=== PATIENT | female | born 1945 | race Caucasian/White ===

== ENCOUNTER 2023-10-15 10:19 | Outpatient (OUT) | payer MEDICARE, SELFPAY ==
--- NOTE | 2023-10-15 | XR_ITS ---
The [address] [address] Patient Name: ADILSON MCNAIR MRN: [id number] date: 1945 Sex: F Assigned Patient Location: [facility] Current Patient Location: [facility] Accession/Order Number: [id number] Exam Date: 10/15/2023 10:30 Report Date: 10/15/2023 12:23 At the request of: CHRIS RIZVI Procedure: XR foot LT min 3V PROCEDURE: XR foot LT min 3V DATE: 10/15/2023 9:30 AM [employer]AD[employer]IC ADVISOR COMPARISONS: None CLINICAL INDICATION: LEFT FOOT PAIN FINDINGS: There is no evidence of fractures or other acute osseous abnormalities. There is mild first metatarsal phalangeal degenerative change. There is moderate first interphalangeal degenerative change. There is evidence of moderate apex medial angulation at the first interphalangeal joint. There is evidence of hammertoe deformity second through the fifth ray. XR/XR foot LT min 3V IMPRESSION: Left foot radiographs show no evidence of acute abnormalities. Findings as discussed above. Electronically authenticated by: THOR CHIRINOS Date: 10/15/2023 12:23
== END 2023-10-15 10:20 | disposition home or self-care (01) ==
LOC: RAD 10:19
PROVIDERS: Visit Provider Podiatrist Foot & Ankle Surgery
DX: M79.672 Pain in left foot (principal)
CPT/HCPCS: 73630

== ENCOUNTER 2023-10-21 13:36 | Outpatient (OUT) | payer MEDICARE, SELFPAY ==
--- OUTSIDE RECORDS SUMMARY | 2023-10-21 13:57 | XMS_ITS | CCD ---
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 Name Role Phone Shari Higuera Primary Care Provider UnavailKirill Sanches Attending Provider Unavailable CHRIS RIZVI Admitting Unavailable NATANDER, CHRIS Attending Unavailable SHARI PRATT V Consulting Unavailable CHRIS RIZVI Consulting Unavailable EROS, SANAM Admitting Unavailable EROS, SANAM Attending Unavailable SHARI HIGUERA Primary Care Unavailable EROS, SANAM Consulting Unavailable EROS, SANAM Admitting Unavailable SANAM COONEY Attending Unavailable SHARI HIGUERA Primary Care Unavailable YOHAN ALARCON Consulting Unavailable EROS, SANAM Consulting Unavailable HIGHLANDER, CHRIS Admitting Unavailable HIGHLANDER, CHRIS Attending Unavailable SHARI PRATT V Consulting Unavailable BELKYS, CHRIS Consulting Unavailable Muna Osborne Attending Provider Unavailable Kirill Hercules Admit Provider Unavailable MD Shari Higuera Primary Care Provider MD Leo Li Attending Provider MD Shari Higuera Primary Care Provider DO Muna Osborne Attending Provider Leo Li Attending Unavailable Leo Li Admitting Unavailable Shari Higuera Primary Care Unavailable Muna Osborne Admitting Unavailable Shari Higuera Primary Care Unavailable Muna Osborne Attending Unavailable Unavailable Unavailable Unavailable Medications Current Medications Medication Drug Class(es) Dates Sig (Normalized) Sig (Original) calcium carbonate 1500 mg / cholecalciferol 800 unt chewable tablet (4 sources) Vitamin D Start: 03-31-2019 take 1 tablet by mouth twice daily Calcium Carbonate-Vitamin D3 (Caltrate 600 Plus D) 600 mg (1,500 mg)-800 unit Tablet,Chewable Active 1 TAB PO Twice daily March 31, 2019 12:00am 168 hr estradiol 0.99571 mg/hr transdermal system (4 sources) Estrogen Start: 03-31-2019 apply 1 dose transdermal route every week Estradiol Active 1 PATCH TRANSDERML every week March 31, 2019 12:00am levothyroxine sodium 0.125 mg oral tablet (4 sources) l-Thyroxine Start: 03-31-2019 take 125 ug by mouth once daily Levothyroxine Active 125 MCG PO Daily March 31, 2019 12:00am Jtuznvjx-Muz-Elva-Fa-L utein (2 sources) Start: 03-31-2019 take 1 tablet by mouth once daily Fmwiqifk-Dgm-Qzku-F a-Lutein Active 1 TAB Oral Daily March 31, 2019 11:23am Qfioeqsq-Yjj-Xlfl-Fa-L utein (Centrum Silver Women) 8 mg iron-400 mcg-300 mcg Tablet (1 source) Start: 03-31-2019 take 1 tablet by mouth once daily Vynlncdg-Myo-Ajhl-F a-Lutein (Centrum Silver Women) 8 mg iron-400 mcg-300 mcg Tablet Active 1 TAB PO Daily March 30, 2019 11:00pm Avzrczky-Skz-Ykjj-Fa-V it K-Lut (Centrum Silver Women) 8 mg iron-400 mcg-300 mcg Tablet (1 source) Start: 03-31-2019 take 1 tablet by mouth once daily Ivetjrdc-Ocf-Ncfm-F a-Vit K-Lut (Centrum Silver Women) 8 mg iron-400 mcg-300 mcg Tablet Active 1 TAB PO Daily March 31, 2019 12:00am omeprazole 20 mg delayed release oral capsule (4 sources) Proton Pump Inhibitor Start: 03-31-2019 take 20 mg by mouth once daily Omeprazole Active 20 MG PO Daily March 31, 2019 12:00am rivaroxaban 10 mg oral tablet (4 sources) Factor Xa Inhibitor Start: 04-15-2019 take 1 tablet by mouth once daily Rivaroxaban (Xarelto) 10 mg Tablet Active 10 MG PO Daily April 15, 2019 12:00am Completed/Discontinued Medications Medication Drug Class(es) Dates Sig (Normalized) Sig (Original) ibuprofen 200 mg oral tablet (2 sources) Nonsteroidal Anti-inflammatory Drug Start: 03-31-2019 End: 04-15-2019 Ibuprofen (Motrin Ib) 200 mg Tablet Discontinued 400 MG PO Q6H March 31, 2019 12:00am April 15, 2019 10:06am Problems Active Problems Problem Classification Problem Date Documented Da te Episodic/Chronic Osteoarthritis (4 sources) Primary osteoarthritis, right ankle and foot; Translations: [PRIMARY OSTEOARTHRITIS RT ANK FOOT] Onset: 11-05-2019 Chronic Other bone disease and musculoskeletal deformities (4 sources) Other specified disorders of bone, lower leg; Translations: [OTHER SPEC DISORDERS BONE LOWER LEG] Onset: 11-09-2019 Episodic Other circulatory disease (1 source) Other specified symptoms and signs involving the circulatory and respiratory systems; Translations: [OTH SPEC SX SIGNS INVLV CIRC RS] Onset: 11-11-2019 Episodic Other connective tissue disease (4 sources) History of total hip arthroplasty; Translations: [Presence of right artificial hip joint] 04-15-2019 Chronic Other connective tissue disease (4 sources) Pain in right leg; Translations: [PAIN IN RIGHT LEG] Onset: 11-03-2019 Episodic Other connective tissue disease (1 source) Pain in right foot; Translations: [PAIN IN RIGHT FOOT] Onset: 10-30-2019 Episodic Other nervous system disorders (1 source) Other chronic pain; Translations: [OTHER CHRONIC PAIN] Onset: 11-11-2019 Chronic Other non-traumatic joint disorders (4 sources) Pain in right ankle and joints of right foot; Translations: [PAIN IN RIGHT ANKLE] Onset: 10-26-2019 Episodic Screening and history of mental health and substance abuse codes (1 source) Personal history of nicotine dependence; Translations: [PERSONAL HISTORY OF NICOTINE DEPEND] Onset: 11-11-2019 Episodic Unclassified (1 source) Encounter for screening mammogram for malignant neoplasm of breast; Translations: [Encounter for screening mammogram for malignant neoplasm of breast] Onset: 06-08-2023 Past or Other Problems Problem Classification Problem Date Documented Da te Episodic/Chronic Neoplasms of unspecified nature or uncertain behavior (1 source) Neoplasm of unspecified behavior of bone, soft tissue, and skin; Translations: [Neoplasm of unspecified behavior of bone, soft tissue, and skin] Onset: 09-04-2022 Episodic Results Test Name Value Interpretation Reference Range Facility MM screening mammo BI w/CADo n 06-10-2023 MM screening mammo BI w/CAD [facility] [address] Mammography Report Signed Patient: Palma Jean MR#: [id number] 2720 : 1945 Acct:[id number] Age/Sex: 77 / F ADM Date: 06/08/23 Loc: [place] Room: Type: [facility] Attending Dr: Muna Osborne DO Copies to: MD Muna Harrison DO Ordering Provider: Muna Osborne DO Date of Service: 06/08/23 MM/MM screening mammo BI w/CAD: screening;Other screening mammogram CLINICAL DATA: Screening for malignancy. BILATERAL SCREENING MAMMOGRAMS - FULL FIELD DIGITAL WITH TOMOSYNTHESIS AND CAD Routine and implant displacement craniocaudal and mediolateral oblique views of both breasts were obtained using low-dose digital technique. Comparison is made to prior studies from April 26, 2020 through June 01, 2022. This examination was reviewed with the aid of CAD. There are bilateral retropectoral silicone implant. These may obscure breast tissue. There are scattered fibroglandular densities. The medial left breast nodular asymmetries are again seen. There are no developing masses, typically malignant calcifications or architectural distorti on. There has been no significant interval change. MM/MM screening mammo BI w/CAD IMPRESSION: NO MAMMOGRAPHIC EVIDENCE OF MALIGNANCY. ROUTINE FOLLOW-UP IS RECOMMENDED IN ONE YEAR. RESULT CODE: 2 Benign Findings(s) DENSITY CODE: 2 (approximately 25-50% glandular) FOLLOW UP: 1YR The false-negative rate of mammography is approximately 10-percent. Management of a palpable abnormality must be based on clinical grounds. Patient was entered into a reminder system with a target due date for the next mammogram. Impression dictated by: Ольга Bolanos M.D.06/10/2023 2:49 PM Dictation Location: [facility] Transcribed By: [facility] 06/10/23 144 Dictated By: Ольга Bolanos MD 06/10/23 144 Signed By: 06/10/23 144 [facility] 09-04-2022 L --- Specimen: Received: 09/05/22 Status: SONI Tosin Num: [id number] Spec Type: Surgical Subm Dr: Leo Li MD Tissues: A Skin-Other than Cyst, tag, debridement or plastic repair (LFT FOREARM VOLAR) B Skin-Other than Cyst, tag, debridement or plastic repair (LFT FOREARM ULNAR) Procedures: HE/2, Gross/Micro L4/2 Age/ Patient Sex Location Account Attending Physician Palma Jean 76/F ROYA [id number] Leo Li MD SPEC NUM: [id number] RECD: 09/05/22 STATUS: SONI LEAHY NUM: [id number] NANCY: 09/04/22-[address]: Leo Li MD ENTERED: 09/05/[address] [facility] DR: SPEC TYPE: Surgical DEPT: S ORDERED: HE/2, Gross/Micro L4/2 ORDERED: HE/2, Gross/Micro L4/2 Pathological Diagnosis A. Soft tissue, left volar forearm, excision: - Angiolipoma. B. 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 Clinical Information Mass, increasing in size, primary biopsy, D 49.2, neoplasm of unspecified behavior of bone, soft tissue and skin Gross Description A. Received in formalin labeled with the patient's name, number and left volar forearm is a 4.0 x 3.2 x 1.7 cm aggregate of yellow-arcos, lobular tissue which is partially surfaced by a thin, translucent membrane. The cut surface is homogeneous, yellow-arcos.. [employer] sections are submitted in one cassette labeled A1. B. Received in formalin labeled with the patient's name, number and left ulnar forearm is a 2.2 x 1.5 x 0.6 cm aggregate of yellow-arcos, rubbery tissue which is partially surfaced by Specimen: Received: 09/05/22 Status: SONI Tosin Num: [id number] Spec Type: Surgical Subm Dr: Leo Li MD Tissues: A Skin-Other than Cyst, tag, debridement or plastic repair (LFT FOREARM VOLAR) B Skin-Other than Cyst, tag, debridement or plastic repair (LFT FOREARM ULNAR) Procedures: HE/2, Gross/Micro L4/2 Patient: Palma Jean [id number] (Continued) Specimen: Received: 09/05/22 (Continued) Gross Description (Continued) Signed (signature on file) Brunilda Shirley MD 09/07/22 1214 Specimen: Received: 09/05/22 Status: SONI Leahy Num: [id number] Spec Type: Surgical Subm Dr: Leo Li MD Tissues: A Skin-Other than Cyst, tag, debridement or plastic repair (LFT FOREARM VOLAR) B Skin-Other than Cyst, tag, debridement or plastic repair (LFT FOREARM ULNAR) Procedures: HE/Odin, Teto/Vlad L4/2 Patient: Palma Jean [id number] (Continued) Specimen: [id number] Received: 09/05/22 (Continued) Gross Description (Continued) a thin, translucent membrane. The cut surface is homogeneous, yellow-arcos. Entirely submitted in one cassette labeled B1. Microscopic Description A. One glass slide with H E stained material has been examined. The microscopic findings support the above pathologic diagnosis. B. One glass slide with H E stained material has been examined. The microscopic findings support the above pathologic diagnosis. CPT Codes 13785?2 Specimen: [id number] Received: 09/05/22 Status: SONI Leahy Num: [id number] Spec Type: Surgical Subm Dr: Leo Li MD Tissues: A Skin-Other than Cyst, tag, debridement or plastic repair (LFT FOREARM VOLAR) B Skin-Other than Cyst, tag, debridement or plastic repair (LFT FOREARM ULNAR) Procedures: HE/2, Gross/Micro L4/2 (more content not included)... Normal [facility] XR TIB_FIB RT 2Von 0 XR TIB_FIB RT 2V PROCEDURE: XR TIB_FI B RT 2V COMPARISON: 10/26/2019 HISTORY: Pain FINDINGS: BONES:No acute fracture or dislocation. Severe osteoarthropathy of the hindfoot with bony remodeling, partial collapse of the talus and extensive marginal osteophyte formation, stable from the prior exam SOFT TISSUES:Negative. No visible soft tissue swelling. EFFUSION:None visible. OTHER: Negative. IMPRESSION: Stable severe hindfoot osteoarthritis Normal [facility] CT ANKLE RT WO CONon 020 CT ANKLE RT WO CON EXAMINATION: CT ANKL E RT WO CON HISTORY: Avascular necrosis of bone ; chronic right ankle pain without injury COMPARISON: 10/26/2019 right ankle radiographs TECHNIQUE: Multi-planar CT images were created without IV contrast. Dose reduction techniques were achieved by using automated exposure control and/or adjustment of mA and/or kV according to patient size and/or use of iterative reconstruction technique. FINDINGS: BONES: Marked narrowing of the anterior and posterior talocalcaneal joint spaces with development of subchondral sclerosis and subchondral cysts. A large subchondral cyst extending from the sinus tarsi. Narrowing of the talonavicular joint. Subchondral cysts along the articular surface of the tibial plafond without significant joint space narrowing. Degenerative osteophytes along all articular margins involving the ankle joint and hindfoot. SOFT TISSUES: Negative. No visible soft tissue swelling. EFFUSION: None visible. OTHER: Negative. IMPRESSION: 1. No evidence of avascular necrosis. 2. Marked degenerative changes of the ankle joint and hindfoot suggestive of osteoarthritis. Normal [facility] Automated basophil %on 04-15 Basophils/100 WBC (Bld) 0.1 % [facility] Automated basophil counton 0 04-15-2019 Basophils (Bld) [#/Vol] 0.0 10*3/uL 0.0-0.[address] [facility] Automated blood lymphocyte c ount (number/volume)on 04-15-2019 Lymphocytes (Bld) [#/Vol] 1.2 10*3/uL 1.00-4.[address] [facility] Automated blood lymphocyte c ount as percentage of total leukocyteson 04-15-2019 Lymphocytes/100 WBC (Bld) 13.8 % [facility] Automated blood monocyte cou nton 04-15-2019 Monocytes (Bld) [#/Vol] 1.0 10*3/uL 0.0-0.[address] [facility] Automated blood platelet cou nt (count/volume)on 04-15-2019 Platelets (Bld) [#/Vol] 184 10*3/uL 150-[address] [facility] Automated blood platelet ilya n volume measurementon 04-15-2019 Platelet mean volume (Bld) [Entitic vol] 8.6 fL 6.3-10.[address] [facility] Automated eosinophil %on Eosinophils/100 WBC (Bld) 0.2 % [facility] Automated eosinophil counton 04-15-2019 Eosinophils (Bld) [#/Vol] 0.0 10*3/uL 0.0-[address] [facility] Automated erythrocyte distri bution width ratioon 04-15-2019 Erythrocyte distribution width (RBC) [Ratio] 12.4 % 11.9-15.[address] [facility] Automated erythrocyte mean c orpuscular hemoglobin (mass per erythrocyte)on 04-15-2019 MCH (RBC) [Entitic mass] 32.4 pg 24.7-34.[address] [facility] Automated erythrocyte mean c orpuscular hemoglobin concentration measurement (mass/volon 04-15-2019 MCHC (RBC) [Mass/Vol] 34.9 g/dL 32.0-35.[address] [facility] Automated erythrocyte mean c orpuscular volumeon 04-15-2019 MCV (RBC) [Entitic vol] 93.1 fL 80-[address] [facility] Automated monocyte %on 04-15 Monocytes/100 WBC (Bld) 12.0 % [facility] Automated neutrophil %on Neutrophils/100 WBC (Bld) 73.9 % [facility] Blood erythrocytes automated count (number/volume)on 04-15-2019 RBC (Bld) [#/Vol] 3.16 10*6/uL 3.60-5.00 [facility] Blood hemoglobin measurement (mass/volume)on 04-15-2019 Hemoglobin (Bld) [Mass/Vol] 10.3 g/dL 11.8-15.[address] [facility] Blood leukocytes automated c ount (number/volume)on 04-15-2019 WBC (Bld) [#/Vol] 8.6 10*3/uL 4.5-11.0 [facility] Blood neutrophil count by au tomated method (number/volume)on 04-15-2019 Neutrophils (Bld) [#/Vol] 6.4 10*3/uL 1.8-7.[address] [facility] Hematocrit [Volume Fraction] of Blood by Automated counton 04-15-2019 Hematocrit (Bld) [Volume fraction] 29.4 % 34.0-46.[address] [facility] Otheron 04-15-2019 Nucleated RBC/100 WBC (Bld) [Ratio] 0.1 % 0-0.[address] [facility] Serum or plasma chloride ilya surement (moles/volume)on 04-15-2019 Chloride [Moles/Vol] 101 mmol/L 95-[address] [facility] Serum or plasma potassium me asurement (moles/volume)on 04-15-2019 Potassium [Moles/Vol] 4.3 mmol/L 3.5-5.[address] [facility] Serum or plasma sodium measu rement (moles/volume)on 04-15-2019 Sodium [Moles/Vol] 133 mmol/L 136-146 [facility] Serum or plasma total carbon dioxide measurement (moles/volume)on 04-15-2019 CO2 [Moles/Vol] 25.5 mmol/L 22.0-30.0 [facility] Vital Signs Date Time Vital Sign Value Performing Clinician Faci lity 04-15-2019 12:00-0400 Body Temperature 98.4 [degF] [facility] 04-15-2019 12:00-0400 BP Diastolic 59 mm[Hg] [facility] 04-15-2019 12:00-0400 BP Systolic 106 mm[Hg] [facility] 04-15-2019 12:00-0400 Pulse (Heart Rate) 78 /min Shari Higuera [facility] 04-15-2019 12:00-0400 Pulse Oximetry 95 % Shari Davida [facility] 04-15-2019 12:00-0400 Respiratory Rate 18 /min [facility] 04-15-2019 06:08-0400 Body weight 70.8 kg [facility] 04-14-2019 11:37-0400 BMI (Body Mass Index) 25.3 kg/m2 Shari [facility] 04-14-2019 11:37-0400 Height 162.56 cm [facility] Encounters Encounter Date Encounter Type Care Provider Facility Start: 06-08-2023 End: 06-08-2023 ambulatory Muna Osborne Facility:[facility] Start: 06-08-2023 End: 06-08-2023 ambulatory MD Shari Higuera Work Phone: [facility] Work Phone: Start: 06-08-2023 End: 06-08-2023 Patient encounter procedure MD Shari Higuera Work Phone: [facility] Work Phone: Start: 09-04-2022 End: 09-04-2022 ambulatory Leo Guillermo Facility:[facility] Start: 09-04-2022 End: 09-04-2022 ambulatory MD Shari Higuera Work Phone: [facility] Work Phone: Start: 09-04-2022 End: 09-04-2022 Departed Referred MD Shari Higuera Work Phone: [facility] [place] Work Phone: Start: 11-09-2019 End: 11-10-2019 Patient encounter procedure CHRIS RIZVI Facility:[facility] Start: 11-05-2019 End: 11-06-2019 Patient encounter procedure SANAM COONEY Facility:[facility] Start: 11-03-2019 End: 11-04-2019 Patient encounter procedure SANAM COONEY Facility:[facility] Start: 10-26-2019 End: 10-27-2019 Patient encounter procedure CHRIS RIZVI Facility:[facility] Start: 07-15-2019 End: 07-15-2019 Patient encounter procedure Shari Ferminrance [facility] Start: 06-03-2019 End: 06-03-2019 Patient encounter procedure Shari Ferminrance [facility] Start: 04-14-2019 End: 04-15-2019 Evaluation and management of inpatient Shari Hgiuera -[facility] Start: 04-09-2019 End: 04-09-2019 Patient encounter procedure Shari Higuera [facility] Procedures Date Procedure Procedure Detail Performing Clinician Start: 07-15-2019 Radiography of hip Raul d Defrance Start: 06-03-2019 Radiography of hip Raul d Defrance Start: 04-14-2019 Radiography of hip Raul d Defrance Start: 04-14-2019 Shari Zanderr manuele Start: 04-09-2019 Screening mammography D avid Defrance Plan of Treatment Date Care Activity Detail Author Start: 06-08-2023 Screening mammograph y of bilateral breasts MM screening mammo BI w/CAD [facility] Patient Education Anterior Hip Replacement (DC) [facility] Patient referral [facility] Payers Date Payer Category Payer Self-pay [id number] 1958 Medicare [id number] 1958 Unknown [id number] 1945 Unknown [id number] 2.16.84 [id number] 1945 Unknown [id number] 2.16.84 [id number] 1945 Unknown [id number] 2.16.84 [id number] 1945 Unknown [id number] 2.16.84 [id number] Unknown [id number] 16.8 [id number] Unknown [id number] 2.16.8 [id number] Social History Date Type Detail Facility Start: 04-14-2019 End: 04-14-2019 Tobacco smoking status NHIS Ex-smoker (finding) [facility] Start: 1945 Sex Assigned At Female F [facility] Medical Equipment Procedure Code Equipment Code Equipment Origin al Text Equipment Identifier Dates Arthroplasty, hip, total, anterior approach FDA Start: 04-14-2019 Arthroplasty, hip, total, anterior approach HEAD FEMORAL +3.5 X 36MM FDA Start: 04-14-2019 Arthroplasty, hip, total, anterior approach HEAD FEMORAL +3.5 X 36MM FDA Start: 04-14-2019 Arthroplasty, hip, total, anterior approach HEAD FEMORAL +3.5 X 36MM FDA Start: 04-14-2019 Arthroplasty, hip, total, anterior approach HEAD FEMORAL +3.5 X 36MM FDA Start: 04-14-2019 Arthroplasty, hip, total, anterior approach HEAD FEMORAL +3.5 X 36MM FDA Start: 04-14-2019 Arthroplasty, hip, total, anterior approach HEAD FEMORAL +3.5 X 36MM FDA Start: 04-14-2019 Arthroplasty, hip, total, anterior approach HEAD FEMORAL +3.5 X 36MM FDA Start: 04-14-2019 Arthroplasty, hip, total, anterior approach HEAD FEMORAL +3.5 X 36MM FDA Start: 04-14-2019 Arthroplasty, hip, total, anterior approach HEAD FEMORAL +3.5 X 36MM FDA Start: 04-14-2019 Arthroplasty, hip, total, anterior approach HEAD FEMORAL +3.5 X 36MM FDA Start: 04-14-2019 Arthroplasty, hip, total, anterior approach LINER CONTINUUM ALLOFIT 36MM FDA Start: 04-14-2019 Arthroplasty, hip, total, anterior approach SCREW BONE 6.5MM X 40MM FDA Start: 04-14-2019 Arthroplasty, hip, total, anterior approach SHELL TM 52MM SIZE 11 FDA Start: 04-14-2019 Arthroplasty, hip, total, anterior approach STEM B/2 08/15 [facility] FDA Start: 04-14-2019 Arthroplasty, hip, total, anterior approach HEAD FEMORAL +3.5 X 36MM FDA Start: 04-14-2019 Arthroplasty, hip, total, anterior approach LINER CONTINUUM ALLOFIT 36MM FDA Start: 04-14-2019 Arthroplasty, hip, total, anterior approach SCREW BONE 6.5MM X 40MM FDA Start: 04-14-2019 Arthroplasty, hip, total, anterior approach SHELL TM 52MM SIZE 11 FDA Start: 04-14-2019 Arthroplasty, hip, total, anterior approach STEM B/2 08/15 [facility] FDA Start: 04-14-2019 Goals Date Patient Goal Desired Activity /State Evaluation note Note Date & Type Note Facility Evaluation note No assessment information availa [facility] Work Phone: Advance Directives No Advanced Directives Records Found Advance Directive Response Recorded Date/ Time Advance Directives Yes April 21, 2019 4:01pm Advance Directive Response Recorded Date/ Time Advance Directives Yes April 21, 2019 3:01pm Chief Complaint and Reason for Visit Chief Complaint Z96.641 Z96.641 Chief Complaint Screening Hip pain Z96.641 Chief Complaint Z12.31 Assessments No Assessments Information AvailableNo Assessments Information Available Family History No Family History Records Found Relationship Condition Age at Onset Recorded Date/T kobi father Cerebrovascular accident (CVA) Unknown Alcoholism Unknown Not Specified Osteoarthritis Unknown Familial multiple lipomatosis Unknown sister Diabetes mellitus Unknown sister Multiple sclerosis Unknown brother Multiple sclerosis Unknown sister Familial multiple lipomatosis Unknown brother Familial multiple lipomatosis Unknown Summary Purpose Additional Source Comments INFORMATION SOURCE (unrecogn ized section and content) DATE CREATED AUTHOR 11/16/2019 [facility] DATE CREATED AUTHOR AUTHOR'S ORGANIZ ATION 06/11/2023 [facility] Care Teams (unrecognized sec tion and content) Team Status: Inactive Member Role Status Dates Shari Higuera MD Primary Care Provider Active Leo Li MD Attending Provider Active Team Status: Active Member Role Status Dates Shari Higuera MD Primary Care Provider Active Team Status: Inactive Member Role Status Dates Shari Higuera MD Primary Care Provider Active Muna Osborne DO Attending Provider Active Goals (unrecognized section and content) Goals may be documented in a n alternate sectionGoals may be documented in an alternate section FOR RECORDS PERTAINING TO PATIENTS WHO ARE OR HAVE BEEN ENROLLED IN A CHEMICAL DEPENDENCY/SUBSTANCEABUSE PROGRAM, SOME INFORMATION MAY BE OMITTED. This clinical summary was aggregated from multiple sources. Caution should be exercised in using it in the provision of clinical care. This summary normalizes information from multiple sources, and as a consequence, information in this document may materially change the coding, format and clinical context of patient data. In addition, data may be omitted in some cases. CLINICAL DECISIONS SHOULD BE BASED ON THE PRIMARY CLINICAL RECORDS. [employer] [facility]. provides no warranty or guarantee of the accuracy or completeness of information in this document.
--- NOTE | 2023-10-21 14:00 | CA_ITS ---
[facility] Test Date: 2023-10-21 Pat Name: ADILSON MCNAIR Department: Room: - Gender: Female Bronze Plater: : 1945 Requested By: CHRIS RIZVI Order Number: [id number] Reading MD: SEMAUS CONNOLLY Interpretive Statements Biphasic doppler waveforms PVR waveforms with normal upstroke, amplitude and dicrotic notch. Right: - no significant pressure gradient between cuffs - normal EVIE Left: - no significant pressure gradient between cuffs - normal EVIE Impression: - normal arterial evaluation of the lower extremities without hemodynamic impairment of the B/L lower extremities at rest (right EVIE 1.08, left EVIE 1.08) Electronically Signed On 10-22-2023 6:50:46 EST by SEAMUS CONNOLLY
== END 2023-10-21 13:37 | disposition home or self-care (01) ==
LOC: CARD 13:38
PROVIDERS: PCP Podiatrist Foot & Ankle Surgery; Visit Provider Podiatrist Foot & Ankle Surgery
DX: R09.89 Other specified symptoms and signs involving the circulatory and respiratory systems (principal)
CPT/HCPCS: 93923

== ENCOUNTER 2023-12-02 12:47 | Outpatient (OUT) | payer MEDICARE, SELFPAY ==
--- NOTE | 2023-12-02 12:51 | VEIN_ITS ---
Patient Name: ADILSON MCNAIR MR#: [id number] : 1945 Exam Date: 12/02/2023 Ordering Doctor: DR. CHRIS CarrilloPSuki RADIOLOGY REPORT PROCEDURE: VC EXT VENOUS REFLUX OMID LMTD COMPARISON: None. INDICATIONS: Other specified disorders of veins I87.8 TECHNIQUE: Duplex imaging of the lower extremity to assess the deep and superficial venous system for the presence of deep or superficial venous incompetence and to document the location and severity of disease. The study includes evaluation of the great saphenous vein (GSV), anterior accessory saphenous vein (AASV) and small saphenous vein (SSV). Patient scanned in reverse Trendelenburg and standing. FINDINGS: RIGHT LOWER EXTREMITY: Saphenofemoral Junction Reflux: Yes 8.1mm 4.4 sec GSV: Diam (mm) Reflux/ Time (sec) Proximal Thigh 6.2 Yes 0.5 Mid Thigh 4.5 Yes 0.5 Distal Thigh 2.4 Yes 1.1 Prox Calf 2.6 Yes 1.1 Mid Calf 2.3 Yes 1.3 Saphenopopliteal Junction Reflux: 2.2mm No SSV: Proximal Calf 1.8 Yes 0.3 Mid Calf 1.9 No AASV: Proximal Thigh 3.3 No Mid Thigh 1.5 Yes 0.6 Distal Thigh Thrombi: No acute or chronic thrombus. Compressibility: Normal. Flow: Mild deep venous reflux. Preforator: Proximal posterior/medial calf measures 3.3 mm without reflux. Tech Note: Complex fluid collection medial right popliteal fossa 4.2 x 3.0 x 1.8 cm. Incompetent varicose vein mid medial thigh measures 3.6 mm with 0.5s reflux. Varicose vein mid medial calf measures 4.3 mm without reflux. LEFT LOWER EXTREMITY: Saphenofemoral Junction Reflux: Yes 9.6 mm 2.0 sec GSV: Diam (mm) Reflux/Time (sec) Proximal Thigh 7.8 Yes 0.6 Mid Thigh 3.8 Yes 1.3 Distal Thigh 3.0 Yes 0.7 Prox Calf 2.2 Yes 1.2 Mid Calf 2.0 Yes 0.5 Saphenopopliteal Junction Relux: 1.0 mm No SSV: Proximal Calf 1.3 No Mid Calf 1.3 Yes 0.4 AASV: Proximal Thigh 2.7 Yes 0.3 Mid Thigh 2.6 Yes 0.2 Distal Thigh Thrombi: No acute or chronic thrombus. Compressibility: Normal. Flow: Moderate deep venous reflux. Machine Learning Intern: Distal/medial lower leg measures 2.6 mm without reflux. Mid medial lower leg measures 2.9 mm with 1.1s reflux. Tech Note: Incompetent varicose vein proximal medial lower leg measures 3.6 mm with 0.3s reflux. Mid medial thigh varicose vein measures 4.0mm with 0.9s reflux. CONCLUSION: 1. Mild reflux within the right and left great saphenous veins, but no significant vessel dilation to allow for treatment. Dictated by: Thai Torrez M.D. on 12/02/2023 at 14:04 Approved by: Thai Torrez M.D. on 12/02/2023 at 14:24
--- NOTE | 2023-12-02 12:51 | VEIN_ITS ---
Patient Name: ADILSON MCNAIR MR#: [id number] : 1945 Exam Date: 12/02/2023 Ordering Doctor: DR. CHRIS CarrilloPSuki RADIOLOGY REPORT PROCEDURE: VC FACILITY EST COMPREHENSIVE VEIN CENTER - OFFICE VISIT INITIAL COMPARISON: None. PROGRESS NOTES: [age] year old female who presents with a 20 year history of leg swelling, cramping, edema, pain, skin discoloration. The patient's right leg symptoms are worse than the left. There has been a progression of symptoms over time. This increases with prolonged leg dependency. The patient describes an improvement with rest, leg elevation, exercise, and support stockings.. The patient denies any signs and symptoms to suggest arterial ischemia. The patient describes a family history varicose veins on paternal side. The patient has drinking and smoking history of : Occasional alcohol consumption; remote history of smoking tobacco. Patient has a past medical history significant for : Noncontributory. The patient denies a history of deep venous thrombus or pulmonary embolus. See separate history and physical for medication list. No prior treatment for varicose or spider veins. Current use of compression stockings. After review of nurse notes, history and physical exam I discussed at length the pathophysiology of venous hypertension and possible treatments, therapies and strategies available. We discussed at length the importance of elevating the lower extremities above the level of the heart, increased physical activity and compression stocking use. Ultrasound venous reflux study performed today was discussed at length with the patient. The report demonstrates mild reflux within the. PHYSICAL EXAM: The right leg demonstrates no significant varicosities, some distal lower extremity spider veins, no ulceration, mild edema, extensive distal lower extremity skin discoloration. The left leg demonstrates no significant varicosities, some distal lower extremity spider veins, no ulceration, mild edema, extensive distal lower extremity skin discoloration. Both thighs, legs and feet were symmetrically warm to the touch. Good posterior tibial and dorsalis pedis pulses were present bilaterally. VEIN/VC Facility EST Comprehensive IMPRESSION: 1. Mild venous insufficiency within great saphenous veins bilaterally, but small veins which would preclude catheter entry. Minimal branching varicosities. 2. No significant lower extremity varicose veins 3. Mild bilateral lower extremity subcutaneous edema 4. No appreciable flow significant arterial disease 5. Extensive skin changes and hemosiderin staining of the distal lower extremities bilaterally; while typical for chronic venous disease, patient's condition is of uncertain etiology. 5. CEAP: C3, EN, AN, NH PLAN: 1. Continued use of compression stockings 2. Elevated legs and increased physical activity symptomatic relief 3. Follow-up in the future as needed. Given patient's mild reflux, it is not unreasonable to expect eventual dilation of the great saphenous vein bilaterally which would allow for treatment. Nurse notes, history and physical were reviewed and confirmed, see attached forms. The nurse was present throughout the physical exam and consultation Dictated by: Thai Torrez M.D. on 12/02/2023 at 14:24 Approved by: Thai Torrez M.D. on 12/02/2023 at 14:35
== END 2023-12-02 12:48 | disposition home or self-care (01) ==
PROVIDERS: PCP Podiatrist Foot & Ankle Surgery; Visit Provider Podiatrist Foot & Ankle Surgery
DX: I83.813 Varicose veins of bilateral lower extremities with pain (principal)
CPT/HCPCS: 93970; G0463

== ENCOUNTER 2024-03-03 09:48 | Outpatient (OUT) | payer MEDICARE, SELFPAY ==
--- NOTE | 2024-03-03 09:54 | ECG_ITS ---
[facility] Test Date: 2024-03-03 Pat Name: ADILSON MCNAIR Department: Room: - Gender: Female Sleep Technologist: : 1945 Requested By: CHRIS RIZVI Order Number: [id number] Reading MD: SEAMUS CONNOLLY Measurements Intervals Orange Rate: 66 P: 67 TX: 151 QRS: 11 QRSD: 67 T: 61 QT: 384 QTc: 403 Interpretive Statements SINUS RHYTHM No previous ECG available for comparison Electronically Signed On 03-04-2024 6:46:06 EDT by SEAMUS CONNOLLY
--- NOTE | 2024-03-03 10:55 | P.GSHP_ITS ---
History of Present Illness History of Present Illness Chief complaint: hallux varus left foot, hammertoes left foot Narrative: Patient presents for preadmission testing. The patient reports bilateral foot pain, left worse than right. She states she has not had any trauma or injury, but over time and with a history of wearing poorly fitting shoes she has developed hammertoes and a bunion. The patient states her pain is worse depending on which shoes she wears on how long she is standing on her feet.She does occasionally take ibuprofen to help with her discomfort. She denies any numbness, tingling, weakness, or any other complaints. The patient states she underwent vascular studies this year. Review of Systems ROS Narrative REVIEW OF SYSTEMS: Negative except as stated in HPI, ten or more systems reviewed. Constitutional: No fever, chills, weakness ENT: No sore throat or epistaxis Cardiovascular: No edema, chest pain, palpitations, or activity intolerance Respiratory: No shortness of breath, cough, or wheezing Gastrointestinal: No abdominal pain, constipation, diarrhea, or vomiting Genitourinary: No dysuria or hematuria Neurological: No numbness, tingling, weakness, or headache Psychiatric: No mood changes [facility] Medical History (Updated 03/03/24 @ 10:22 by Sadia Khoury NP) History of blood transfusion ?Z92.89 - Personal history of other medical treatment (ICD-10) Hx of anorexia nervosa ?Z86.59 - Personal history of other mental and behavioral disorders (ICD-10) Anemia ?D64.9 - Anemia, unspecified (ICD-10) COVID-19 ?U07.1 - COVID-19 (ICD-10) GERD (gastroesophageal reflux disease) ?K21.9 - Gastro-esophageal reflux disease without esophagitis (ICD-10) Hypothyroidism ?E03.9 - Hypothyroidism, unspecified (ICD-10) Postoperative nausea and vomiting ?R11.2 - Nausea with vomiting, unspecified (ICD-10) ?Z98.890 - Other specified postprocedural states (ICD-10) Hallux valgus ?M20.10 - Hallux valgus (acquired), unspecified foot (ICD-10) Toe deformity ?M20.60 - Acquired deformities of toe(s), unspecified, unspecified foot (ICD- 10) Bunionette ?M21.629 - Bunionette of unspecified foot (ICD-10) Disorder of vein ?I87.9 - Disorder of vein, unspecified (ICD-10) Peripheral vascular disease ?I73.9 - Peripheral vascular disease, unspecified (ICD-10) Hammer toe ?M20.40 - Other hammer toe(s) (acquired), unspecified foot (ICD-10) Hallux varus ?M20.30 - Hallux varus (acquired), unspecified foot (ICD-10) 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 - Lipomatosis, not elsewhere classified (ICD-10) Surgical History (Updated 03/03/24 @ 10:22 by Sadia Khoury NP) History of colonoscopy ?Z98.890 - Other specified postprocedural states (ICD-10) History of tonsillectomy ?Z90.89 - Acquired absence of other organs (ICD-10) History of total hip arthroplasty ?Z96.649 - Presence of unspecified artificial hip joint (ICD-10) History of hysterectomy ?Z90.710 - Acquired absence of both cervix and uterus (ICD-10) H/O breast augmentation ?Z98.82 - Breast implant status (ICD-10) Family History (Updated 03/03/24 @ 10:22 by Sadia Khoury NP) Other Family history of breast cancer Family history of diabetes mellitus Family history of heart disease Family history of hypertension Family history of stroke Social History (Updated 03/03/24 @ 10:13 by Sadia Khoury NP) Within the past year, how often did you have a drink containing alcohol: 4 or more times a week Within the past year, how many standard drinks containing alcohol did you have on a typical day: 1 or 2 Total score: 0 Score interpretation: A score less than 3 is consistent with normal alcohol consumption. Smoking status: Never smoker Non-prescribed substance use: denies use Highest level of school completed/degree received: some college, no degree Meds Home Medications and Allergies Home Medications ?Medication ?Instructions ?Recorded ?Confirmed ?Type cholecalciferol (vitamin D3) 25 25 mcg PO DAILY 03/03/24 03/03/24 History mcg (1,000 unit) capsule estradiol 0.0375 mg/24 hr weekly 1 patch transdermal QWEEK 03/03/24 03/03/24 History transdermal patch levothyroxine 100 mcg tablet 100 mcg PO DAILY 03/03/24 03/03/24 History omeprazole 20 mg capsule,delayed 20 mg PO DAILY 03/03/24 03/03/24 History release Allergies Allergy/AdvReac Type Severity Reaction Status Date / Time No Known Drug Allergies Allergy Verified 03/03/24 10:10 Exam Narrative Exam Narrative: Constitutional: Awake, alert, comfortable, well-appearing, nontoxic, interact linda, vital signs as charted Head: Normocephalic, atraumatic Neck: Supple, normal appearance, normal range of motion, no meningeal signs, no lymphadenopathy Respiratory: No respiratory distress, breath sounds clear Cardiovascular: Regular rate and rhythm, strong and regular heart tones Musculoskeletal: Hallux valgus deformity left foot with tenderness over the medial eminence of the first metatarsal, toe contractures of lesser toes noted, limited range of motion, brisk capillary refill, sensation intact Skin: Chronic vascular changes noted bilateral lower legs Neuro: No neurological deficits, normal sensation Psychiatric: Oriented ?3, normal affect Assessment and Plan Assessment and Plan (1) Hallux varus: (2) Hammer toe: (3) Peripheral vascular disease: (4) Bunionette: (5) Toe deformity: (6) Hallux valgus: Plan Left foot hammertoe repairs of toes 2 through 5, hallux IPJ fusion, tailor's bunionectomy, soft tissue balancing, metatarsal osteotomies as needed scheduled with Dr. Mehta March 16, 2024.
[2024-03-03 10:57] LABS: Basophils Absolute Auto 0.1 10^3/uL (0.0-0.1); Basophils Percent Auto 1.3 % (0.2-2.0); Eosinophils Absolute Auto 0.3 10^3/uL (0.0-0.7); Eosinophils Percent Auto 5.6 % (0.9-7.0); Hematocrit 42.8 % (36.0-48.0); Hemoglobin 14.3 g/dL (12.0-16.0); Immature Granulocytes Abs Auto 0.01 10^3/uL (0.00-0.03); Immature Granulocytes Pct Auto 0.2 % (0.0-0.5); Lymphocytes Absolute Auto 1.3 10^3/uL (1.2-3.8); Mean Corpuscular HGB Conc 33.4 g/dL (29.9-35.2); Mean Corpuscular Hemoglobin 30.8 pg (26.7-34.0); Mean Platelet Volume 10.6 fL (9.5-13.5); Monocytes Absolute Auto 0.5 10^3/uL (0.3-0.8); Monocytes Percent Auto 11.7 % (1.7-12.0); Neutrophils Absolute Auto 2.3 10^3/uL (1.4-6.5); Neutrophils Percent Auto 51.2 % (43.0-75.0); Platelet Count 232 10^3/uL (150-450); Red Blood Count 4.65 10^6/uL (4.20-5.40); Red Cell Distribution Width 12.5 % (11.0-15.0); White Blood Count 4.5 10^3/uL (4.0-11.0)
== END 2024-03-03 09:49 | disposition home or self-care (01) ==
LOC: PST 09:48
PROVIDERS: PCP Podiatrist Foot & Ankle Surgery; Visit Provider Podiatrist Foot & Ankle Surgery
DX: Z01.810 Encounter for preprocedural cardiovascular examination (principal); Z01.812 Encounter for preprocedural laboratory examination; Z01.818 Encounter for other preprocedural examination; M20.32 Hallux varus (acquired), left foot; M20.42 Other hammer toe(s) (acquired), left foot
CPT/HCPCS: 85025; 93005; G0463

== ENCOUNTER 2024-03-16 06:14 | Day surgery (SDC) | payer MEDICARE, SELFPAY ==
[2024-03-03 10:38] VITALS: BP 132/70; PULSE 78; TEMP 36.2; O2SAT 99; BMI 25.8
--- NOTE | 2024-03-16 | FL_ITS ---
[address] [address] Patient Name: ADILSON MCNAIR MRN: [id number] date: 1945 Sex: F [facility]igned [facility] Current Patient Location: [facility] Accession/Order Number: [id number] Exam Date: 03/16/2024 07:53 Report Date: 03/18/2024 12:49 At the request of: CHRIS RIZVI Procedure: FL fluoroscopy <1hr NON-READ EXAM: FL fluoroscopy <1hr NON-READ HISTORY: TECHNIQUE: FINDINGS: Please see Operative Report. Electronically authenticated by: RADIOLOGIST NO Date: 03/18/2024 12:49
[2024-03-16 06:24] LABS: Basophils Absolute Auto 0.1 10^3/uL (0.0-0.1); Basophils Percent Auto 1.4 % (0.2-2.0); Eosinophils Absolute Auto 0.3 10^3/uL (0.0-0.7); Eosinophils Percent Auto 5.1 % (0.9-7.0); Hematocrit 42.6 % (36.0-48.0); Hemoglobin 14.3 g/dL (12.0-16.0); Immature Granulocytes Abs Auto 0.01 10^3/uL (0.00-0.03); Immature Granulocytes Pct Auto 0.2 % (0.0-0.5); Lymphocytes Absolute Auto 2.2 10^3/uL (1.2-3.8); Lymphocytes Percent Auto 44.2 % (20.5-60.0); Mean Corpuscular HGB Conc 33.6 g/dL (29.9-35.2); Mean Corpuscular Volume 92.2 fL (81.0-99.0); Mean Platelet Volume 9.8 fL (9.5-13.5); Monocytes Absolute Auto 0.5 10^3/uL (0.3-0.8); Monocytes Percent Auto 10.3 % (1.7-12.0); Neutrophils Percent Auto 38.8 % (43.0-75.0); Platelet Count 227 10^3/uL (150-450); Red Blood Count 4.62 10^6/uL (4.20-5.40); Red Cell Distribution Width 12.4 % (11.0-15.0); White Blood Count 5.1 10^3/uL (4.0-11.0)
[2024-03-16 06:40] LABS: Glucometer 107 mg/dL (74-106)
[2024-03-16 06:56] VITALS: BP 161/70; PULSE 81; TEMP 36.4; O2SAT 95; BMI 26.0
[2024-03-16] MEDS: LACTATED RINGER'S SOLUTION 1,000 ML 50 ML IV (07:05)
[2024-03-16] MEDS: CEFAZOLIN SODIUM/DEXTROSE,ISO 2 GM/50 ML PIGGYBACK IV (07:50)
--- NOTE | 2024-03-16 09:19 | P.ORON_ITS ---
Brief Operative Note Date of procedure: 03/16/24 Pre-op diagnosis general: Left hallux malleus, hallux valgus, hammertoes 2-5, tailor's bunion Post-op diagnosis: same as pre-op Procedure: Procedures performed: Left hallux IPJ fusion, modified Lieberman bunionectomy, h ammertoe arthroplasty of toes 2-5, tailor's bunionectomy Indications for procedure: Patient is a 78-year-old female whose had worsening pain and deformity of her bilateral feet with the left being more painful than the right. Despite shoe modification, activity modification, padding/taping and OTC pain medicine her pain only worsened. As part of surgical clearance patient did receive ABIs/TBI's which were amenable for good healing potential however given her existing venous disease she was educated on potential risks and benefits particularly she is at increased risk for wound healing problems due to her pre-existing venous disease. All questions were answered to her satisfaction and consent was obtained today. Intraoperative findings: Contractures at the hallux IPJ and PIPJ of the lesser toes. Valgus deformity at the level of the IPJ of the great toe with mild prominence of the medial eminence of the first metatarsal. Bone quality was somewhat soft but good fixation was obtained across the great toe. There is also prominence of the lateral eminence of the fifth metatarsal. Procedure in detail: Patient was identified in preoperative holding by myself which time correct side and site were marked and consent was obtained. Regional anesthesia was provided by the anesthesia team and preoperative antibiotics were started. Patient was brought back to the operating theater placed on table in supine position. Operative extremity was prepped and draped in usual sterile fashion with a thigh tourniquet. Formal timeout was performed and the operative extremity was exsanguinated and tourniquet was inflated. With attention to the hallux, a dorsal incision was created over the PIPJ. Sharp and blunt dissection down to the extensor tendon was performed. The tendon was incised transversely then reflected proximally. A sagittal saw was used to remove the proximal phalanx head in an oblique fashion. Then the base of the proximal phalanx was prepared for fusion with curettes and a sagittal saw. The site was flushed with sterile saline. Then a guidewire was placed from the tip of the great toe and spanned the hallux IPJ. Deformity correction and good alignment of the great toe was noted. Then a 3.5 mm headed cannulated screw was placed accordingly noting compression at the IPJ. The guidewire was removed. Then the incision was extended proximally over the distal aspect of the first metatarsal. Capsulotomy of the IPJ was performed gaining access to the first MPJ. A sagittal saw was used to resect the prominent medial eminence which was then contoured with a rasp. Then the adductor hallucis tendon was isolated and released from the lateral aspect of the proximal phalanx base. Deformity correction was noted on the table. Surgical site was irrigated with copious saline. The tendon was repaired with absorbable suture. Then non-absorbable suture was used to close skin and deformity correction was noted. With attention to the 2nd digit a semi-elliptical dorsal incision was created over the PIPJ. Sharp and blunt dissection down to the extensor tendon was performed. The tendon was incised transversely then reflected proximally. A sagittal saw was used to remove the proximal phalanx head. The site was flushed with sterile saline. With attention to the 3rd digit a semi-elliptical dorsal incision was created over the PIPJ. Sharp and blunt dissection down to the extensor tendon was performed. The tendon was incised transversely then reflected proximally. A sagittal saw was used to remove the proximal phalanx head. The site was flushed with sterile saline. With attention to the 4th digit a semi-elliptical dorsal incision was created over the PIPJ. Sharp and blunt dissection down to the extensor tendon was performed. The tendon was incised transversely then reflected proximally. A sagittal saw was used to remove the proximal phalanx head. The site was flushed with sterile saline. With attention to the 5th digit a semi-elliptical dorsal incision was created over the PIPJ. Sharp and blunt dissection down to the extensor tendon was performed. The tendon was incised transversely then reflected proximally. A sagittal saw was used to remove the proximal phalanx head. The site was flushed with sterile saline. Then an incision was placed over the fifth metatarsal phalangeal joint and a combination of sharp and blunt dissection gained access to the capsule which was released allowing access to the head of the fifth metatarsal. A sagittal saw was used to resect the prominence of the lateral eminence which was then excised and passed back table. The fifth metatarsal head was then contoured with a hand rasp and the surgical site was irrigated with copious saline. The extensor tendons of toes 2-5 were repaired with absorbable suture. Remaining incisions were then closed in layers. Once the tourniquet was deflated and prompt hyperemic response with good capillary refill time was noted over the digits. A dry sterile dressing consisting of Xeroform, 4 x 4's and Kerlix were applied. Then multiple layers of cast padding were placed from the forefoot to the popliteal fossa followed by a layer of Ranjit wrap's. Additional layers of cast padding were then placed again followed by an additional layer of Ranjit wrap's. Then a surgical shoe was applied. Patient tolerated the procedure and anesthesia well was transferred to the altagracia very room with vital signs stable and brisk capillary refill to the operative toes Postoperative plan: Discharge home under family's care Weightbearing as tolerated in surgical shoe or cam boot Prescriptions were sent to the pharmacy Patient is to follow-up within 1 week and keep incisions dry until that point Implants: Medline 3.5 mm cannulated screw Anesthesia: regional and General-LMA Surgeon: Dariel Mehta Manager Cath Lab: Sami James Estimated blood loss (mL): 25 Tourniquet time (min): 88 Condition: stable Disposition: PACU
--- NOTE | 2024-03-16 09:53 | XR_ITS ---
[address] [address] Patient Name: ADILSON MCNAIR MRN: [id number] date: 1945 Sex: F Assigned Patient Location: [facility] Current Patient Location: [facility] Accession/Order Number: [id number] Exam Date: 03/16/2024 10:40 Report Date: 03/16/2024 14:27 At the request of: ASHLEY COTTON Procedure: XR foot LT min 3V PROCEDURE: XR foot LT min 3V COMPARISON: 10/15/2023 HISTORY: postop xr pacu FINDINGS: BONES:Interval fusion of the first interphalangeal joint with a single screw from distal to medial. Degenerative change of the first metatarsal-phalangeal joint with arthritic change of the lateral sesamoid. Limited visualization of the second through fourth toes related to persistent flexion although distal osteotomies of the proximal phalanges suspected SOFT TISSUES:Forefoot soft tissue swelling with subcutaneous emphysema EFFUSION:None visible. OTHER: Negative. XR/XR foot LT min 3V IMPRESSION: Postsurgical changes Electronically authenticated by: SHARI PRATT Date: 03/16/2024 14:27
[2024-03-16 10:31] VITALS: BP 126/77; PULSE 70; TEMP 36.1; O2SAT 97
[2024-03-16 10:39] LABS: Glucometer 118 mg/dL (74-106)
[2024-03-16 10:46] VITALS: BP 105/69; PULSE 67; O2SAT 97
[2024-03-16 11:01] VITALS: BP 104/65; PULSE 65; O2SAT 96
== END 2024-03-16 11:20 | disposition home or self-care (01) ==
PROVIDERS: PCP Family Medicine; Visit Provider Podiatrist Foot & Ankle Surgery
PROC: (CPT 28110; principal; 2024-03-16 07:30)
DX: M20.32 Hallux varus (acquired), left foot (principal); M20.42 Other hammer toe(s) (acquired), left foot; M21.622 Bunionette of left foot; Z90.710 Acquired absence of both cervix and uterus; Z96.643 Presence of artificial hip joint, bilateral; K21.9 Gastro-esophageal reflux disease without esophagitis; E07.9 Disorder of thyroid, unspecified; Z79.890 Hormone replacement therapy; Z79.899 Other long term (current) drug therapy
CPT/HCPCS: 28110; 28285 ×4; 28755; 36415; 64450; 73630; 76000; 76942; 82948; 85025; C1713; J0131; J0690; J1100; J1885; J2250; J2405; J2704; J2795; J3010

== ENCOUNTER 2024-04-01 13:23 | Outpatient (OUT) | payer MEDICARE, SELFPAY ==
--- NOTE | 2024-04-01 | XR_ITS ---
The [address] [address] Patient Name: ADILSON MCNAIR MRN: [id number] date: 1945 Sex: F Assigned Patient Location: Current Patient Location: Accession/Order Number: [id number] Exam Date: 04/01/2024 13:24 Report Date: 04/02/2024 06:40 At the request of: CHRIS RIZVI Procedure: XR foot LT min 3V PROCEDURE: XR foot LT min 3V HISTORY: LEFT FOOT PAIN COMPARISON: XR foot left 03/16/2024 FINDINGS: BONES:Prior mechanical fusion of the first toe interphalangeal joint via a single longitudinally placed screw. Resection of the heads of the proximal phalanx of the second through 5th toes. Mild degenerative changes of the first metatarsophalangeal joint and prior bunionectomy. SOFT TISSUES:Mild distal dorsal soft tissue swelling. EFFUSION:None visible. OTHER: Negative. XR/XR foot LT min 3V IMPRESSION: 1. Stable surgical changes. 2. No appreciable acute abnormality. Electronically authenticated by: YOHAN ALARCON Date: 04/02/2024 06:40
--- OUTSIDE RECORDS SUMMARY | 2024-04-01 13:39 | XMS_ITS | CCD ---
Author Organization [facility] Care Team Providers Care Licensed Massage Therapist Name Role Phone Shari Higuera Primary Care Provider UnavailKirill Sanches Attending Provider Unavailable CHRIS RIZVI Admitting Unavailable BELKYS, CHRIS Attending Unavailable SHARI PRATT V Consulting Unavailable CHRIS RIZVI Consulting Unavailable SANAM COONEY Admitting Unavailable SANAM COONEY Attending Unavailable SHARI HIGUERA Primary Care Unavailable EROS, SANAM Consulting Unavailable SANAM COONEY Admitting Unavailable SANAM COONEY Attending Unavailable SHARI HIGUERA Primary Care Unavailable YOHAN ALARCON Consulting Unavailable SANAM COONEY Consulting Unavailable CHRIS RIZVI Admitting Unavailable HIGHLANDER, CHRIS Attending Unavailable SHARI PRATT V Consulting Unavailable CHRIS RIZVI Consulting Unavailable Muna Osborne Attending Provider Unavailable Kirill Hercules Admit Provider Unavailable MD Shari Higuera Primary Care Provider MD Leo Li Attending Provider MD Shari Higuera Primary Care Provider [phone] DO Muna Osborne Attending Provider [phone] Leo Li Attending Unavailable Leo Li Admitting Unavailable Shari Higuera Primary Care Unavailable Muna Osborne Admitting Unavailable Shari Higuera Primary Care Unavailable Muna Osborne Attending Unavailable Shari Higuera MD Primary Care Provider [phone] SHARI HIGUERA Attending SHARI Dixon Referring Unavailable SHARI HIGUERA Primary Care Unavailable SHARI HIGUERA Referring Unavailable SHARI HIGUERA Primary Care Unavailable Unavailable Unavailable Unavailable Medications Current Medications [...] March 31, 2019 12:00am 168 hr estradiol 0.44383 mg/hr transdermal system (6 sources) Estrogen Start: 03-31-2019 apply 1 dose transdermal route every week Estradiol Active 1 PATCH TRANSDERML every week March 31, 2019 12:00am Start: 04-30-2018 estradiol (CLI STONEY) 0.0375 mg/24 hr 1 patch once a week. 0 04/30/2018 Active levothyroxine sodium 0.1 mg oral tablet (6 sources) l-Thyroxine Start: 06-26-2023 take 1 tablet by mouth in the morning levothyroxine (SYNTHROID, LEVOTHROID) 100 MCG tablet Take 1 tablet (100 mcg total) by mouth in the morning. 90 tablet 3 06/26/2023 Active Start: 03-31-2019 take 125 ug by mouth once daily Levothyroxine Active 125 MCG PO Daily March 31, 2019 12:00am Skwrprzk-Mni-Tkon-Fa-Lutein (2 sources) Start: 03-31-2019 take 1 tablet by mouth once daily Itawynug-Klv-Jhkv-Fa-Lutein Active 1 TAB Oral Daily March 31, 2019 11:23am Xxcwieca-Jvr-Hkpl-Fa-Lutein (Centrum Silver Women) 8 mg iron-400 mcg-300 mcg Tablet (1 source) Start: 03-31-2019 take 1 tablet by mouth once daily Scowzggz-Rfj-Burp-Fa-Lutein (Centrum Silver Women) 8 mg iron-400 mcg-300 mcg Tablet Active 1 TAB PO Daily March 30, 2019 11:00pm Vekafbia-Srs-Qbsp-Fa-Vit K-Lut (Centrum Silver Women) 8 mg iron-400 mcg-300 mcg Tablet (1 source) Start: 03-31-2019 take 1 tablet by mouth once daily Utwvzpvm-Znj-Iqbl-Fa-Vit K-Lut (Centrum Silver Women) 8 mg iron-400 mcg-300 mcg Tablet Active 1 TAB PO Daily March 31, 2019 12:00am omeprazole 20 mg delayed release oral capsule (6 sources) Proton Pump Inhibitor Start: 07-29-2023 take 1 capsule by mouth in the morning omeprazole (PriLOSEC) 20 mg capsule TAKE 1 CAPSULE BY MOUTH IN THE MORNING 90 capsule 3 07/29/2023 Active Start: 03-31-2019 take 20 mg by mouth [...] Active Problems Problem Classification Problem Date Documented Date Episodic/Chronic Esophageal disorders (4 sources) Gastroesophageal reflux disease without esophagitis; Translations: [Gastro-esophageal reflux disease without esophagitis] Onset: 05-09-2018 11-27-2023 Chronic Menopausal disorders (4 sources) Disorder associated with menstruation AND/OR menopause; Translations: [Menopausal and female climacteric states] Onset: 05-09-2018 11-27-2023 Chronic Osteoarthritis (6 sources) Primary osteoarthritis, right ankle and foot; Translations: [Primary coxarthrosis, bilateral] Onset: 05-09-2018 05-09-2018 Chronic Other bone disease and musculoskeletal deformities [...] [PAIN IN RIGHT ANKLE] Onset: 10-26-2019 Episodic Other screening for suspected conditions (not mental disorders or infectious disease) (2 sources) Patient encounter status; Translations: [Encounter for screening for malignant neoplasm of colon] Onset: 11-27-2023 11-27-2023 Episodic Screening and history of mental health and substance abuse codes (1 source) Personal history of nicotine dependence; Translations: [PERSONAL HISTORY OF NICOTINE DEPEND] Onset: 11-11-2019 Episodic Thyroid disorders (5 sources) Acquired hypothyroidism; Translations: [Hypothyroidism, unspecified] Onset: 05-09-2018 11-27-2023 Chronic Unclassified (1 source) Encounter for screening mammogram for malignant neoplasm of breast; Translations: [Encounter for screening mammogram for malignant neoplasm of breast] Onset: 06-08-2023 Unclassified (1 source) Annual Exam Onset: 11-27-2023 Past or Other Problems Problem Classification Problem Date Documented Da te Episodic/Chronic Mood disorders (2 sources) Mood disorders Onset: 11-27-2023 11-27-2023 Neoplasms of unspecified nature or uncertain behavior (1 source) Neoplasm of unspecified behavior of bone, soft tissue, and skin; Translations: [Neoplasm of unspecified behavior of bone, soft tissue, and skin] Onset: 09-04-2022 Episodic Peripheral and visceral atherosclerosis (2 sources) Peripheral vascular disease; Translations: [Peripheral vascular disease, unspecified] Onset: 11-27-2023 Resolved: 11-27-2023 11-27-2023 Chronic Unclassified (2 sources) Onset: 05-09-2018 05-09-2018 Results Test Name Value Interpretation Reference Range Facility CBC AND AUTO DIFFon 12-03-19 24 Band form neutrophils/100 WBC (Bld) 2.0 % Normal [facility] Comment on above: Performed By: #### C BCA, CMP, 58594-0, 34949-4, THYR, 9 #### [facility] ([id number]) [address], [address] [place] [address] Eosinophils (Bld) [#/Vol] 0.2 10*3/uL Normal 0.0-0.4 [facility] Comment on above: Performed By: #### C BCA, CMP, , , THYR, 2132-05 #### [facility] ([id number]) [address], [address] [place] [address] Eosinophils/100 WBC (Bld) 6.0 % Normal [facility] Comment on above: Performed By: #### C BCA, CMP, , , THYR, 2132-05 #### [facility] ([id number]) [address], [facility] [address] [place] [address] Erythrocyte distribution width (RBC) [Ratio] 12.8 % Normal 11.5-15.0 [facility] Comment on above: Performed By: #### C BCA, CMP, , , THYR, 2132-05 #### [facility] ([id number]) [address], [address] [place] [address] Hematocrit (Bld) [Volume fraction] 42.2 % Normal 35-47 [facility] Comment on above: Performed By: #### C BCA, CMP, , , THYR, 2132-05 #### [facility] ([id number]) [address], [address] [place] [address] Hemoglobin (Bld) [Mass/Vol] 14.3 g/dL Normal 11.7-15.5 [facility] Comment on above: Performed By: #### C BCA, CMP, , , THYR, 2132-05 #### [facility] ([id number]) [address], [address] [place] [address] Lymphocytes (Bld) [#/Vol] 1.5 10*3/uL Normal 1.0-3.5 [facility] Comment on above: Performed By: #### C BCA, CMP, , , THYR, 2132-05 #### [facility] ([id number]) [address] [place] [address] Lymphocytes/100 WBC (Bld) 51.0 % Normal [facility] Comment on above: Performed By: #### C BCA, CMP, , , THYR, 2132-05 #### [facility] ([id number]) [address] [place] [address] MCH (RBC) [Entitic mass] 31.5 pg Normal 27-34 [facility] Comment on above: Performed By: #### C BCA, CMP, , , THYR, 2132-05 #### [facility] ([id number]) [address] [address] [place] [address] MCHC (RBC) [Mass/Vol] 33.8 g/dL Normal 32-36 [facility] Comment on above: Performed By: #### C BCA, CMP, , , THYR, 2132-05 #### [facility] ([id number]) [address] [place] [address] MCV (RBC) [Entitic vol] 93 fL Normal 80-100 [facility] Comment on above: Performed By: #### C BCA, CMP, , , THYR, 2132-05 #### [facility] ([id number]) [address] [place] [address] Monocytes (Bld) [#/Vol] 0.2 10*3/uL Normal 0-0.9 [facility] Comment on above: Performed By: #### C BCA, CMP, , , THYR, 2132-05 #### [facility] ([id number]) [address] [address] [place] [address] Monocytes/100 WBC (Bld) 8.0 % Normal [facility] Comment on above: Performed By: #### C BCA, CMP, 34817-3, , THYR, 2132-05 #### [facility] ([id number]) [address], [address] [place] [address] Neutrophils (Bld) [#/Vol] 1.1 10*3/uL Low 1.5-6.6 [facility] Comment on above: Performed By: #### C BCA, CMP, , , THYR, 2132-05 #### [facility] ([id number]) [address], [address] [place] [address] Platelet mean volume (Bld) [Entitic vol] 9.3 fL Normal 7-12 [facility] Comment on above: Performed By: #### C BCA, CMP, , , THYR, 2132-05 #### [facility] ([id number]) [address], [address] [place] [address] Platelets (Bld) [#/Vol] 232 10*3/uL Normal 150-450 [facility] Comment on above: Performed By: #### C BCA, CMP, , , THYR, 2132-05 #### [facility] ([id number]) [address], [address] [place] [address] RBC COUNT 4.53 X10E12/L Normal 3.80-5.20 [facility] Comment on above: Performed By: #### C BCA, CMP, 14597-5, , THYR, 2132-05 #### [facility] ([id number]) [address], [address] [place] [address] RBC morphology finding Nom (Bld) NORMAL Normal [facility] Comment on above: Performed By: #### C BCA, CMP, 98147-9, 85085-0, THYR, 2132-05 #### [facility] ([id number]) [address], [address] [place] [address] SEG NEUTROPHIL 33.0 % Normal [facility] Comment on above: Performed By: #### C BCA, CMP, 45314-8, , THYR, 2132-05 #### [facility] ([id number]) [address], [address] [place] [address] WBC (Bld) [#/Vol] 3.0 10*3/uL Low 4.0-11.0 [facility] Comment on above: Performed By: #### C BCA, CMP, 96227-2, , THYR, 2132-05 #### [facility] ([id number]) [address], [address] [place] [address] COMPREHENSIVE METABOLIC PANE Adalid 12-03-2023 Albumin [Mass/Vol] 4.0 g/dL Normal 3.2-5.3 [facility] Comment on above: Performed By: #### C BCA, CMP, 23608-6, , THYR, 2132-05 #### [facility] ([id number]) [address], [address] [place] [address] ALP [Catalytic activity/Vol] 74 U/L Normal 39-130 [facility] Comment on above: Performed By: #### C BCA, CMP, 39513-3, , THYR, 2132-05 #### [facility] ([id number]) [address], [address] [place] [address] ALT [Catalytic activity/Vol] 18 U/L Normal 0-31 [facility] Comment on above: Performed By: #### C BCA, CMP, 39508-1, , THYR, 2132-05 #### [facility] ([id number]) [address], [address] [place] [address] Anion gap [Moles/Vol] 8 mmol/L Normal 5-15 [facility] Comment on above: Performed By: #### C BCA, CMP, 17378-9, , THYR, 2132-05 #### [facility] ([id number]) [address], [address] [place] [address] AST [Catalytic activity/Vol] 21 U/L Normal 0-41 [facility] Comment on above: Performed By: #### C BCA, CMP, 14813-2, , THYR, 2132-05 #### [facility] ([id number]) [address], [address] [place] [address] Bilirubin [Mass/Vol] 0.6 mg/dL Normal 0.3-1.2 [facility] Comment on above: Performed By: #### C BCA, CMP, 18382-3, , THYR, 2132-05 #### [facility] ([id number]) [address], [address] [place] [address] Calcium [Mass/Vol] 9.1 mg/dL Normal 8.5-10.5 [facility] Comment on above: Performed By: #### C BCA, CMP, 47177-9, , THYR, 2132-05 #### [facility] ([id number]) [address], [address] [place] [address] Chloride [Moles/Vol] 105 mmol/L Normal 98-109 [facility] Comment on above: Performed By: #### C BCA, CMP, 94270-6, , THYR, 2132-05 #### [facility] ([id number]) [address], [address] [place] [address] CO2 [Moles/Vol] 29 mmol/L Normal 22-32 [facility] Comment on above: Performed By: #### C BCA, CMP, 34403-5, , THYR, 2132-05 #### [facility] ([id number]) [address], [address] [place] [address] Creatinine [Mass/Vol] 0.79 mg/dL Normal 0.40-1.00 [facility] Comment on above: Result Comment: METH OD TRACEABLE TO IDMS STANDARD Performed By: #### C BCA, CMP, 20825-3, , THYR, 2132-05 #### [facility] ([id number]) [address] [facility] [address] [place] [address] GFR/1.73 sq M.predicted among non-blacks MDRD (S/P/Bld) [Vol rate/Area] 77 mL/min/{1.73_m2} Normal >59 [facility] Comment on above: Result Comment: Reported eGFR is based on the CKD-EPI 2020 equation that does not use a race coefficient. Performed By: #### C BCA, CMP, , , THYR, 2132-05 #### [facility] ([id number]) [address], [address] [place] [address] Glucose [Mass/Vol] 82 mg/dL Normal 65-99 [facility] Comment on above: Performed By: #### C BCA, CMP, 69266-6, , THYR, 2132-05 #### [facility] ([id number]) [address], [address] [place] [address] Potassium [Moles/Vol] 4.1 mmol/L Normal 3.5-5.0 [facility] Comment on above: Performed By: #### C BCA, CMP, 54039-2, , THYR, 2132-05 #### [facility] ([id number]) [address], [address] [place] [address] Protein [Mass/Vol] 7.0 g/dL Normal 6.0-8.0 [facility] Comment on above: Performed By: #### C BCA, CMP, 22838-9, , THYR, 2132-05 #### [facility] ([id number]) [address], [address] [place] [address] Sodium [Moles/Vol] 142 mmol/L Normal 134-146 [facility] Comment on above: Performed By: #### C BCA, CMP, 38226-1, , THYR, 2132-05 #### [facility] ([id number]) [address], [address] [place] [address] Urea nitrogen [Mass/Vol] 15 mg/dL Normal 5-27 [facility] Comment on above: Performed By: #### C BCA, CMP, 96252-9, , THYR, 2132-05 #### [facility] ([id number]) [address], [address] [place] [address] Lipid 1996 panelon 4 Cholesterol [Mass/Vol] 214 mg/dL High 150-200 [facility] Comment on above: Performed By: #### C BCA, CMP, 44226-5, , THYR, 2132-05 #### [facility] ([id number]) [address], [address] [place] [address] Cholesterol in HDL [Mass/Vol] 59 mg/dL Normal >39 [facility] Comment on above: Result Comment: HDL <40 mg/dL - High Risk HDL > or = 40mg/dL- Desirable HDL >60 mg/dL - Negative Risk Performed By: #### C BCA, CMP, 33689-0, , THYR, 2132-05 #### [facility] ([id number]) [address], [address] [place] [address] Cholesterol in LDL [Mass/Vol] 134 mg/dL High <130 [facility] Comment on above: Result Comment: LDL <100 mg/dL - Desirable LDL >160 mg/dL - High Risk Performed By: #### C BCA, CMP, 15492-6, , THYR, 2132-05 #### [facility] ([id number]) [address], [address] [place] [address] Cholesterol in VLDL [Mass/Vol] 21 mg/dL Normal 0-30 [facility] Comment on above: Performed By: #### C BCA, CMP, 57470-9, , THYR, 2132-05 #### [facility] ([id number]) [address], [address] [place] [address] CHOLESTEROL:HDL 3.6 Normal 1.0-5.0 [facility] Comment on above: Performed By: #### C BCA, CMP, 16784-9, , THYR, 2132-05 #### [facility] ([id number]) [address], [address] [place] [address] Triglyceride [Mass/Vol] 106 mg/dL Normal 27-150 [facility] Comment on above: Performed By: #### C BCA, CMP, 93894-8, , THYR, 2132-05 #### [facility] ([id number]) [address], [address] [place] [address] MAGNESIUMon 12-03-2023 Magnesium [Mass/Vol] 2.1 mg/dL Normal 1.8-2.6 [facility] Comment on above: Performed By: #### C BCA, CMP, 36757-0, , THYR, 2132-05 #### [facility] ([id number]) [address], [address] [place] [address] THYROID PROFILEon 12-03-2023 Free T4 [Mass/Vol] 1.22 ng/dL Normal 0.61-1.60 [facility] Comment on above: Performed By: #### C BCA, CMP, 58660-9, , THYR, 2132-05 #### [facility] ([id number]) [address], [address] [place] [address] TSH 0.20 uIU/mL Low 0.49-4.67 [facility] Comment on above: Performed By: #### C BCA, CMP, 77941-8, , THYR, 2132-05 #### [facility] ([id number]) [address], [address] [place] [address] VITAMIN B12on 12-03-2023 Cobalamin (Vitamin B12) [Mass/Vol] 554 pg/mL Normal 180-914 [facility] Comment on above: Performed By: #### C BCA, CMP, 43575-5, , THYR, 2132-05 #### [facility] ([id number]) [address] [place] [address] MM screening mammo BI w/CADo n 06-10-2023 MM screening mammo BI w/CAD [facility] [address] [address] Mammography Report Signed Patient: Palma Jean MR#: [id number] 2720 : 1945 Acct:[id number] Age/Sex: 77 / F ADM Date: 06/08/23 Loc: [place] Room: Type: [facility] Attending Dr: Muna Osborne DO Copies to: [...] Ольга Bolanos M.D.06/10/2023 2:49 PM Dictation Location: [facility] Transcribed By: [facility] 06/10/23 144 Dictated By: Ольга Bolanos MD 06/10/23 144 Signed By: 06/10/23 144 [facility] 09-04-2022 L --- Specimen: [id number] Received: 09/05/22 Status: SONI Leahy Num: [id number] Spec Type: Surgical Subm Dr: Leo Li MD Tissues: A Skin-Other than Cyst, tag, debridement or plastic repair (LFT FOREARM VOLAR) B Skin-Other than Cyst, tag, debridement or plastic repair (LFT FOREARM ULNAR) Procedures: HE/2, Gross/Micro L4/2 Age/ Patient Sex Location Account Attending Physician Palma Jean 76/F [place] [id number] Leo Li MD SPEC NUM: [id number] RECD: 09/05/2259 STATUS: SONI LEAHY NUM: [id number] NANCY: 09/04/22-[address] [facility] [address]: Leo Li MD ENTERED: 09/05/[address] [facility] [address]: ALEXANDRE TYPE: Surgical DEPT: S ORDERED: HE/2, Gross/Micro L4/2 ORDERED: HE/2, Gross/Micro L4/2 Pathological Diagnosis A. Soft tissue, left volar forearm, excision: - Angiolipoma. B. 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 The cut surface is homogeneous, yellow-arcos.. Barista sections are submitted in one cassette labeled A1. B. Received in formalin labeled with the patient's name, number and left ulnar forearm is a 2.2 x 1.5 x 0.6 cm aggregate of yellow-arcos, rubbery tissue which is partially surfaced by Specimen: [id number] Received: 09/05/22 Status: SONI Tosin Num: [id number] Spec Type: Surgical Subm Dr: Leo Li MD Tissues: A Skin-Other than Cyst, tag, debridement or plastic repair (LFT FOREARM VOLAR) B Skin-Other than Cyst, tag, debridement or plastic repair (LFT FOREARM ULNAR) Procedures: HE/2, Gross/Micro L4/2 Patient: Palma Jean [id number] (Continued) Specimen: [id number] Received: 09/05/22 (Continued) Gross Description (Continued) Signed (signature on file) Brunilda Shirley MD 09/07/22 1214 Specimen: [id number] Received: 09/05/22 Status: SONI Leahy Num: [id number] Spec Type: Surgical Subm Dr: Leo Li MD Tissues: A Skin-Other than Cyst, tag, debridement or plastic repair (LFT FOREARM VOLAR) B Skin-Other than Cyst, tag, debridement or plastic repair (LFT FOREARM ULNAR) Procedures: BHARGAVI/Teto Newby/Vlad L4/2 Patient: Palma Jean [id number] (Continued) Specimen: [id number] Received: 09/05/22 (Continued) Gross Description (Continued) a [...] support the above pathologic diagnosis. CPT Codes 00979?2 Specimen: [id number] Received: 09/05/22 Status: SONI Leahy Num: [id number] Spec Type: Surgical Subm Dr: Leo Li MD Tissues: A Skin-Other than Cyst, tag, debridement or plastic repair (LFT FOREARM VOLAR) B Skin-Other than Cyst, tag, debridement or plastic repair (LFT FOREARM ULNAR) Procedures: HE/2, Gross/Micro L4/2 (more content not included)... [facility] XR TIB_FIB RT 2Von 0 XR TIB_FIB [...] IMPRESSION: Stable severe hindfoot osteoarthritis Normal [facility] CT ANKLE RT WO CONon 020 CT [...] and hindfoot suggestive of osteoarthritis. Normal [facility] Automated basophil %on 04-15 Basophils/100 WBC (Bld) 0.1 % [facility] Automated basophil counton 0 04-15-2019 Basophils (Bld) [#/Vol] 0.0 10*3/uL 0.0-0.2 [facility] Automated blood lymphocyte c ount (number/volume)on 04-15-2019 Lymphocytes (Bld) [#/Vol] 1.2 10*3/uL 1.00-4.8 [facility] Automated blood lymphocyte c ount as percentage of total leukocyteson 04-15-2019 Lymphocytes/100 WBC (Bld) 13.8 % [facility] Automated blood monocyte cou nton 04-15-2019 Monocytes (Bld) [#/Vol] 1.0 10*3/uL 0.0-0.8 [facility] Automated blood platelet cou nt (count/volume)on 04-15-2019 Platelets (Bld) [#/Vol] 184 10*3/uL 150-450 [facility] Automated blood platelet ilya n volume measurementon 04-15-2019 Platelet mean volume (Bld) [Entitic vol] 8.6 fL 6.3-10.7 [facility] Automated eosinophil %on Eosinophils/100 WBC (Bld) 0.2 % [facility] Automated eosinophil counton 04-15-2019 Eosinophils (Bld) [#/Vol] 0.0 10*3/uL 0.0-0.45 [facility] Automated erythrocyte distri bution width ratioon 04-15-2019 Erythrocyte distribution width (RBC) [Ratio] 12.4 % 11.9-15.3 [facility] Automated erythrocyte mean c orpuscular hemoglobin (mass per erythrocyte)on 04-15-2019 MCH (RBC) [Entitic mass] 32.4 pg 24.7-34.3 [facility] Automated erythrocyte mean c orpuscular hemoglobin concentration measurement (mass/volon 04-15-2019 MCHC (RBC) [Mass/Vol] 34.9 g/dL 32.0-35.0 [facility] Automated erythrocyte mean c orpuscular volumeon 04-15-2019 MCV (RBC) [Entitic vol] 93.1 fL 80-100 [facility] Automated monocyte %on 04-15 Monocytes/100 WBC (Bld) 12.0 % [facility] Automated neutrophil %on Neutrophils/100 WBC (Bld) 73.9 % [facility] Blood erythrocytes automated count (number/volume)on 04-15-2019 RBC (Bld) [#/Vol] 3.16 10*6/uL 3.60-5.00 [facility] Blood hemoglobin measurement (mass/volume)on 04-15-2019 Hemoglobin (Bld) [Mass/Vol] 10.3 g/dL 11.8-15.4 [facility] Blood leukocytes automated c ount (number/volume)on 04-15-2019 WBC (Bld) [#/Vol] 8.6 10*3/uL 4.5-11.0 [facility] Blood neutrophil count by au tomated method (number/volume)on 04-15-2019 Neutrophils (Bld) [#/Vol] 6.4 10*3/uL 1.8-7.7 [facility] Hematocrit [Volume Fraction] of Blood by Automated counton 04-15-2019 Hematocrit (Bld) [Volume fraction] 29.4 % 34.0-46.4 [facility] Otheron 04-15-2019 Nucleated RBC/100 WBC (Bld) [Ratio] 0.1 % 0-0.5 [facility] Serum or plasma chloride ilya surement (moles/volume)on 04-15-2019 Chloride [Moles/Vol] 101 mmol/L 95-114 [facility] Serum or plasma potassium me asurement (moles/volume)on 04-15-2019 Potassium [Moles/Vol] 4.3 mmol/L 3.5-5.1 [facility] Serum or plasma sodium measu rement (moles/volume)on 04-15-2019 Sodium [Moles/Vol] 133 mmol/L 136-146 [facility] Serum or plasma total carbon dioxide measurement (moles/volume)on 04-15-2019 CO2 [Moles/Vol] 25.5 mmol/L 22.0-30.0 [facility] Vital Signs Date Time Vital Sign Value Performing Clinician Facility 11-27-2023 [id number] Body height 161.3 cm Shari Higuera MD Work Phone: [facility] 11-27-2023 10:07-0400 Body mass index (BMI) [Ratio] 25.02 kg/m2 Shari Higuera MD Work Phone: [facility] 11-27-2023 10:07-0400 Body temperature 98.01 [degF] Shari Higuera MD Work Phone: [facility] 11-27-2023 10:07-0400 Body weight 65.09 kg Shari Higuera MD Work Phone: [facility] 11-27-2023 10:07-0400 Diastolic blood pressure 80 mm[Hg] Shari Higuera MD Work Phone: [facility] 11-27-2023 10:07-0400 Heart rate 72 /min Shari Higuera MD Work Phone: [facility] 11-27-2023 10:07-0400 Respiratory rate 16 /min Shari Higuera MD Work Phone: [facility] 11-27-2023 10:07-0400 Systolic blood pressure 130 mm[Hg] Shari Higuera MD Work Phone: [facility] 04-15-2019 12:00-0400 Body Temperature 98.4 [degF] [facility] 04-15-2019 12:00-0400 BP Diastolic 59 mm[Hg] [facility] 04-15-2019 12:00-0400 BP Systolic 106 mm[Hg] [facility] 04-15-2019 12:00-0400 Pulse (Heart Rate) 78 /min Shari [facility] 04-15-2019 12:00-0400 Pulse Oximetry 95 % [facility] 04-15-2019 12:00-0400 Respiratory Rate 18 /min [facility] 04-15-2019 06:08-0400 Body weight 70.8 kg [facility] 04-14-2019 11:37-0400 BMI (Body Mass Index) 25.3 kg/m2 [facility] 04-14-2019 11:37-0400 Height 162.56 cm [facility] Encounters Encounter Date Encounter Type Care Provider Facility Start: 12-05-2023 Telephone encounter Lauren Yocasta Harp BUSINESS SERVICES ASSISTANT-RELINER Work Phone: [facility] Start: 12-03-2023 End: 12-04-2023 ambulatory [facility] Start: 11-27-2023 End: 11-27-2023 ambulatory [facility] Start: 11-27-2023 Encounter for genera l adult medical examination without abnormal findings [facility] Start: 11-27-2023 End: 11-27-2023 Patient encounter procedure Shari Higuera MD Work Phone: [facility] Comment on above: Routine general medi lizzie examination at a health care facility (Primary Dx); Acquired hypothyroidism; Post menopausal syndrome; Gastroesophageal reflux disease without esophagitis; Screen for colon cancer Start: 11-27-2023 End: 11-27-2023 Patient encounter status Shari Higuera MD Work Phone: [facility] Work Phone: Start: 06-08-2023 End: 06-08-2023 ambulatory Muna Osborne Facility:[facility] Start: 06-08-2023 End: 06-08-2023 ambulatory MD Shari Higuera Work Phone: [facility] Work Phone: Start: 06-08-2023 End: 06-08-2023 Patient encounter procedure MD Shari Higuera Work Phone: [facility] Work Phone: Start: 09-04-2022 End: 09-04-2022 ambulatory Leo Sofyricardo Facility:[facility] Start: 09-04-2022 End: 09-04-2022 ambulatory MD Shari Higuera Work Phone: [facility] Work Phone: Start: 09-04-2022 End: 09-04-2022 Departed Referred MD Shari Higuera Work Phone: [facility] [place] Work Phone: Start: 11-09-2019 End: 11-10-2019 Patient encounter procedure CHRIS RIZVI Facility:[facility] Start: 11-05-2019 End: 11-06-2019 Patient encounter procedure SANAM COONEY Facility:[facility] Start: 11-03-2019 End: 11-04-2019 Patient encounter procedure SANAM COONEY Facility:[facility] Start: 10-26-2019 End: 10-27-2019 Patient encounter procedure CHRIS RIZVI Facility:[facility] Start: 07-15-2019 End: 07-15-2019 Patient encounter procedure Shari Higuera -[facility] Start: 06-03-2019 End: 06-03-2019 Patient encounter procedure Shari Higuera -[facility] Start: 04-14-2019 End: 04-15-2019 Evaluation and management of inpatient Shari Higuera -[facility] Start: 04-09-2019 End: 04-09-2019 Patient encounter procedure Shari Higuera -[facility] Procedures Date Procedure Procedure Detail Performing Clinician Start: 11-27-2023 Adult depression scr eening assessment Shari Higuera MD Work Phone: Start: 07-15-2019 Radiography of hip Raul d Defrance Start: 06-03-2019 Radiography of hip Ralu d Defrance Start: 04-14-2019 Radiography of hip Raul d Defrance Start: 04-14-2019 Shari jacksone Start: 04-09-2019 Screening mammography D avid Defbrando Plan of Treatment Date Care Activity Detail Author Start: 11-27-2024 End: 11-27-2024 Patient encounter procedure 11/27/2024 10:00 AM EDT Office Visit [facility] [address] [place] [id number] [facility] Start: 11-26-2024 Adult BMI Screening [facility] Start: 11-26-2024 Depression Screening [facility] Start: 11-26-2024 Fall Risk Screening Fall Risk Screen ing [facility] Start: 11-26-2024 Medicare Annual Well ness Visit Medicare Annual Wellness Visit [facility] Start: 11-26-2024 Tobacco Screening Tobacco Screening [facility] Start: 05-03-2024 Influenza vaccination Influenza Vacc ine [facility] Start: 11-27-2023 End: 11-26-2024 CBC W Auto Differential panel - Blood CBC auto differential Lab Routine Acquired hypothyroidism Expected: 11/27/2023, Expires: 11/26/2024 [facility] Work Phone: Comment on above: Expected: 11/27/2023 , Expires: 11/26/2024 Start: 11-27-2023 End: 11-26-2024 Comprehensive metabolic 2000 panel - Serum or Plasma Comprehensive metabolic panel Lab Routine Acquired hypothyroidism Expected: 11/27/2023, Expires: 11/26/2024 [facility] Comment on above: Expected: 11/27/2023 , Expires: 11/26/2024 Start: 11-27-2023 End: 11-26-2024 Lipid 1996 panel - Serum or Plasma Lipid profile Lab Routine Acquired hypothyroidism Expected: 11/27/2023, Expires: 11/26/2024 [facility] Comment on above: Expected: 11/27/2023 , Expires: 11/26/2024 Start: 11-27-2023 End: 11-26-2024 Magnesium [Mass/volume] in Serum or Plasma Magnesium Lab Routine Acquired hypothyroidism Expected: 11/27/2023, Expires: 11/26/2024 [facility] Comment on above: Expected: 11/27/2023 , Expires: 11/26/2024 Start: 11-27-2023 End: 11-26-2024 Thyroid profile includes TSH FT4 Thyroid profile includes TSH FT4 Lab Routine Acquired hypothyroidism Expected: 11/27/2023, Expires: 11/26/2024 [facility] Comment on above: Expected: 11/27/2023 , Expires: 11/26/2024 Start: 06-08-2023 Screening mammograph y of bilateral breasts MM screening mammo BI w/CAD [facility] Start: 05-03-2023 COVID-19 Vaccine ( season) COVID-19 Vaccine ( season) [facility] Start: 05-03-2023 Influenza vaccination Influenza Vacc ine [facility] Start: 1964 DTaP,Tdap and Td Vaccines (1 - Tdap) DTaP,Tdap and Td Vaccines (1 - Tdap) [facility] Start: 1963 Adult BMI Follow Up Plan Adult BMI F ollow Up Plan [facility] End: 11-26-2024 Cyanocobalamin vitamin b-12 Vitamin B12 Lab Routine Acquired hypothyroidism 1 Occurrences starting 11/27/2023 until 11/26/2024 [facility] Comment on above: 1 Occurrences starti ng 11/27/2023 until 11/26/2024 Patient Education Anterior Hip R eplacement (DC) [facility] Patient referral [facility] Immunizations Immunization Date Immunization Notes Care Provider Megha cedeño 11-15-2023 zoster vaccine recombinant Shari Higuera MD Work Phone: [facility] 05-16-2023 zoster vaccine recombinant Shari Higuera MD Work Phone: [facility] 10-31-2020 COVID-19, mRNA, LNP- S, PF, 30mcg/0.3mL Dose Shari Higuera MD Work Phone: [facility] 10-10-2020 COVID-19, mRNA, LNP- S, PF, 30mcg/0.3mL Dose Shari Higuera MD Work Phone: [facility] 07-18-2020 influenza, seasonal, injectable, preservative free Shari Higuera MD Work Phone: [facility] 07-18-2020 influenza virus vacc ine, unspecified formulation Shari Higuera MD Work Phone: [facility] 07-01-2019 influenza, high dose seasonal, preservative-free Shari Higuera MD Work Phone: [facility] 07-01-2019 influenza, injectabl e, quadrivalent, preservative free Shari Higuera MD Work Phone: [facility] 05-30-2018 influenza, seasonal, injectable, preservative free Shari Higuera MD Work Phone: [facility] 05-22-2018 influenza, high dose seasonal, preservative-free Shari Higuera MD Work Phone: [facility] 05-22-2018 influenza, injectabl e, quadrivalent, preservative free Shari Higuera MD Work Phone: [facility] 06-27-2017 influenza, high dose seasonal, preservative-free Shari Higuera MD Work Phone: [facility] 06-27-2017 pneumococcal polysaccharide vaccine, 23 valent Shari Higuera MD Work Phone: [facility] 05-15-2017 influenza, injectabl e, quadrivalent, contains preservative Shari Higuera MD Work Phone: [facility] 07-02-2016 influenza, high dose seasonal, preservative-free Shari Higuera MD Work Phone: [facility] 07-02-2016 pneumococcal conjuga te vaccine, 13 valent Shari Higuera MD Work Phone: [facility] 06-02-2016 influenza, injectabl e, quadrivalent, contains preservative Shari Higuera MD Work Phone: [facility] 06-02-2016 pneumococcal polysaccharide vaccine, 23 valent Shari Higuera MD Work Phone: [facility] 07-14-2009 novel influenza-H1N1 -09, preservative-free, injectable Shari Higuera MD Work Phone: [facility] Payers Date Payer Category Payer Self-pay [id number] 2015 Private Health Insurance [facility] AARP SUPPLEMENT [id number] 2015-Present [phone] [address] [place] [address] [id number] 2011 Medicare MEDICARE MEDICAR E PART A & B [id number] 2011-Present [phone] [address] [place] [address] [id number] 1959 Medicare [id number] 1959 Unknown [id number] 1946 Unknown [id number] 1946 Unknown [id number] 1946 Unknown [id number] 1946 Unknown [id number] 1946 Unknown [id number] 1946 Unknown [id number] Unknown [id number] Unknown [id number] Social History Date Type Detail Facility Start: 04-14-2019 End: 11-16-2022 Tobacco smoking status COIS Ex-smoker (finding) [facility] Start: 1945 Sex Assigned At Female F [facility] History of tobacco use Current smoker [facility] History of tobacco use Cigarette Smoker P [facility] Start: 11-16-2022 Tobacco use and exposure Smoke less tobacco non-user [facility] Start: 11-27-2023 Alcohol intake Current drinke r of alcohol (finding) [facility] Start: 10-13-2020 End: 11-14-2020 History of Social function [facility] Start: 10-13-2020 End: 11-14-2020 Alcohol Use Disorder Identification Test - Consumption [AUDIT-C] [facility] Frequency of Alcohol Consumption 4 or more times a week [facility] Start: 05-09-2018 Alcohol Comment social [facility] Start: 1945 Sex Assigned At Not on file P [facility] Medical Equipment Procedure Code Equipment Code Equipment [...] Goals Date Patient Goal Desired Activity /State Note 12-05-2023 Telephone Encounter - Precious Alaniz - 12/05/2023 11:46 AM EDT Note Date & Type Note Facility 12-05-2023 Miscellaneous Notes Formattin g of this note is different from the original. Joan called the office back, wants to wait awhile as she is going to be having hammer toe surgery, and wants to wait until the is taken care of 11/27 LM SE CALLED REGARDING SCREENING COLONOSCOPY REFERRAL THAT OUR OFFICE RECEIVED FROM DR HIGUERA LAST COLON 2018 WITH 10 YEAR RECALL documented in this encounter [employer] Telephone encounter Note 12-05-2023 Telephone Encounter - Precious Alaniz - 12/05/2023 11:46 AM EDT Note Date & Type Note Facility 12-05-2023 Telephone encount er Note Joan called the office back, wants to wait awhile as she is going to be having hammer toe surgery, and wants to wait until the is taken care of 11/27 LM SE CALLED REGARDING SCREENING COLONOSCOPY REFERRAL THAT OUR OFFICE RECEIVED FROM DR HIGUERA LAST COLON 2018 [facility] History of Present illness Narrative 11-27-2023 Shari Higuera MD - 11/27/2023 10:00 AM EDT Note Date & Type Note Facility 11-27-2023 History of Present illness Narrative Images from the original note were not included. [id number] [facility] [id number] Subjective: Palma Jean is a 77 y.o. female who presents for a Medicare Annual Wellness exam. The following portions of the patient's history were reviewed and updated as appropriate: Health Risk Assessment, allergies, past medical history, past surgical history, social history, family history, and immunization history Accompanied by: self History Provided By: self Language and Other Communication Barriers: Primary Language Spoken: Jordanian Highest Level of Education Completed: high school diploma/GED Are You Happy With How Well You Read? yes Diet and Physical Activity: Current Prescribed Diet: Regular Diet How would you describe the condition of your mouth and teeth, including false teeth and dentures? Good Exercise Frequency: Daily Types of Exercise: Walking Health Risk Assessment: Cognitive Screening Do you have trouble remembering or recalling facts or events?: No Do family members or caregivers report that you have difficulty remembering things?: No Depression Screening Little interest or pleasure in doing things: Not at all Feeling down, depressed, or hopeless: Not at all Trouble falling or staying asleep, or sleeping too much: Not at all Feeling tired or having little energy: (!) Several days Poor appetite or overeating: Not at all Feeling bad about yourself - or that you are a failure or have let yourself or your family down: Not at all Trouble concentrating on things, such as reading the newspaper or watching television: Not at all Moving or speaking so slowly that other people could have noticed. Or the opposite - being so fidgety or restless that you have been moving around a lot more than usual: Not at all Thoughts that you would be better off , or of hurting yourself in some way: Not at all End of Life Planning Do you have a living will?: Yes Do you have a durable power of employment attorney?: Yes Fall Risk Fall Risk Assessment Completed?: Yes Hearing Assessment Do you strain or struggle to hear/understand conversations?: No Do you have trouble hearing the television or radio when others do not?: No Does your family ever voice concerns about your hearing?: No Do you wear hearing aid/s?: No Lifestyle Assessment Do you smoke or use smokeless tobacco?: No If you smoke or use smokeless tobacco, are you ready to quit?: NA Are you exposed to secondhand smoke?: No On average, how many drinks of alcohol do you consume in a week?: 2 - 5 Do you exercise for 30 or more minutes on average at least 3 days a week?: Sometimes Do you have any tooth, denture, or oral problems?: No Do you snore or has anyone told you that you snore?: No Do you try to eat a balanced diet?: Yes Do you experience leakage of urine, also known as urinary incontinence?: (!) Sometimes Do you have difficulty performing any of these activities? (check all that apply): None Do you have difficulty performing any of these activities? (check all that apply): None Personal Health During the past 4 weeks, how would you rate your overall health?: (!) Fair Do you understand how to take all of your medications?: Yes How confident are you that you can control and manage most of your health problems?: (!) Somewhat confident In the past 12 months, how many times have you been hospitalized?: None Safety Assessment Do you have throw rugs on the floor?: (!) Yes Do you feel safe at your home?: Yes Do you feel unsteady when walking?: No Are you having difficulty with driving?: No Do you have trouble seeing?: No What assistive device do you use? (check all that apply): None Vitals: Vitals: 11/27/23 1007 BP: 130/80 Pulse: 72 Resp: 16 Temp: 36.7 C (98 F) Body mass index is 25.02 kg/m . History: Hospitalizations during the past 12 months: no Patient Active Problem List Diagnosis Date Noted Peripheral vascular disease, unspecified ([facility]) 11/27/2023 Acquired hypothyroidism 05/09/2018 Gastroesophageal reflux disease without esophagitis 05/09/2018 Primary osteoarthritis of both hips 05/09/2018 Post menopausal syndrome 05/09/2018 Past Medical History: Diagnosis Date Arthritis Disease of thyroid gland Familial multiple lipomatosis GERD (gastroesophageal reflux disease) Hypothyroidism PONV (postoperative nausea and vomiting) Past Surgical History: Procedure Laterality Date COLONOSCOPY COLONOSCOPY N/A 08/24/2019 Performed by Eyal Cerda DO at [facility] HYSTERECTOMY JOINT REPLACEMENT TONSILLECTOMY Family History Problem Relation Age of Onset Alcohol abuse Father Multiple sclerosis Sister Mental illness Sister Multiple sclerosis Brother Alcohol abuse Brother Breast cancer Maternal Aunt Breast cancer Paternal Grandmother Social History Tobacco Use Smoking status: Former Types: Cigarettes Smokeless tobacco: Never Substance Use Topics Alcohol use: Yes Comment: social Allergies: No Known Allergies Current Outpatient Medications Medication Sig Dispense Refill estradiol (CLIMARA) 0.0375 mg/24 hr 1 patch once a week. levothyroxine (SYNTHROID, LEVOTHROID) 100 MCG tablet Take 1 tablet (100 mcg total) by mouth in the morning. 90 tablet 3 omeprazole (PriLOSEC) 20 mg capsule TAKE 1 CAPSULE BY MOUTH IN THE MORNING 90 capsule 3 No current facility-administered medications for this visit. Immunization History Administered Date(s) Administered COVID-19, mRNA, LNP-S, PF, 30mcg/0.3mL Dose 10/10/2020, 10/31/2020, 06/16/2021 Covid-19, Mrna, Lnp-s, Bivalent, Pf, 30mcg/0.3 ml 07/08/2022 Covid-19, Mrna, Lnp-s, Pf, 30 Mcg/0.3 Ml Dose, Kashif-sucrose 01/05/2022 H1N1 Inj Preservative Free 07/14/2009 Influenza (IM) Preservative Free 05/30/2018, 07/18/2020 Influenza High Dose Preservative Free IM 07/02/2016, 06/27/2017, 05/22/2018, 07/01/2019 Influenza, Injectable, Quadrivalent 06/02/2016, 05/15/2017 Influenza, Injectable, quadrivalent (PF) 05/22/2018, 07/01/2019 Pneumococcal Conjugate 13-Valent 07/02/2016 Pneumococcal Polysaccharide 06/02/2016, 06/27/2017 Zoster Vaccine Recombinant 05/16/2023, 11/15/2023 Medication Adherence: Original 4-item [place] Scale Do you ever forget to take your medicine? no Are you careless at times about taking your medicine? no When you feel better, do you sometimes stop taking your medicine? no Sometimes if you feel worse when you take your medicine, do you stop taking it? no Score: 4 Scoring: high-low; yes=0 no=1. Range 0-4. By reversing the wording of four questions about the way patients might experience drug omissions, the sum of yes answers would provide a composite measure of non-adherence. Higher scores indicate higher adherence. Cognitive Screening: Clock Drawing Test: Normal Mini-Cog: Patient Concerns for Cognitive Function: no Family Concerns for Cognitive Function: no Sensory Screening: Hearing right ear: normal Hearing left ear: normal Can you hear what a person says without seeing his/her face, if spoken in a normal voice from across the room? Yes Can you hear what a person says without seeing his/her face, if that person whispers to you from across a room? Yes Do you use a hearing aid: No Review of Systems: Review of Systems Constitutional: Negative. Respiratory: Negative. Cardiovascular: Negative. Gastrointestinal: Positive for constipation. Genitourinary: Negative. Neurological: Positive for weakness and headaches. Objective: Physical Exam Vitals and nursing note reviewed. Constitutional: Appearance: Normal appearance. HENT: Head: Normocephalic and atraumatic. Eyes: Extraocular Movements: Extraocular movements intact. Pupils: Pupils are equal, round, and reactive to light. Cardiovascular: Rate and Rhythm: Normal rate and regular rhythm. Pulses: Normal pulses. Heart sounds: Normal heart sounds. Pulmonary: Effort: Pulmonary effort is normal. Breath sounds: Normal breath sounds. Skin: General: Skin is warm and dry. Neurological: General: No focal deficit present. Mental Status: She is alert and oriented to person, place, and time. Psychiatric: Mood and Affect: Mood normal. Behavior: Behavior normal. Hospital Outpatient Visit on 11/19/2022 Component Date Value Ref Range Status TSH 11/19/2022 0.08 (L) 0.49 - 4.67 uIU/mL Final T4, free 11/19/2022 1.17 0.61 - 1.60 ng/dL Final Cholesterol 11/19/2022 200 150 - 200 mg/dL Final Triglycerides 11/19/2022 83 27 - 150 mg/dL Final HDL Cholesterol 11/19/2022 57 >39 mg/dL Final Comment: HDL <40 mg/dL - High Risk HDL > or = 40mg/dL- Desirable HDL >60 mg/dL - Negative Risk VLDL 11/19/2022 17 0 - 30 mg/dL Final LDL (calc) 11/19/2022 126 <130 mg/dL Final Comment: LDL <100 mg/dL - Desirable LDL >160 mg/dL - High Risk Cholesterol:HDL Ratio 11/19/2022 3.5 1.0 - 5.0 Final Sodium 11/19/2022 141 134 - 146 mmol/L Final Potassium, Bld 11/19/2022 4.2 3.5 - 5.0 mmol/L Final Chloride 11/19/2022 105 98 - 109 mmol/L Final CO2 11/19/2022 28 22 - 32 mmol/L Final Anion gap 11/19/2022 8 5 - 15 mmol/L Final BUN 11/19/2022 17 5 - 27 mg/dL Final Creatinine 11/19/2022 0.78 0.40 - 1.00 mg/dL Final METHOD TRACEABLE TO [facility] STANDARD Glucose 11/19/2022 82 65 - 99 mg/dL Final Calcium 11/19/2022 9.1 8.5 - 10.5 mg/dL Final Total Protein 11/19/2022 6.7 6.0 - 8.0 g/dL Final Albumin 11/19/2022 3.9 3.2 - 5.3 g/dL Final Alkaline Phosphatase 11/19/2022 63 39 - 130 U/L Final AST 11/19/2022 17 0 - 41 U/L Final ALT 11/19/2022 14 0 - 31 U/L Final Total bilirubin 11/19/2022 0.6 0.3 - 1.2 mg/dL Final eGFR (CKD-EPI)non-race dependent 11/19/2022 79 >59 ml/min/1.73sq.m Final Comment: Reported eGFR is based on the CKD-EPI 2020 equation that does not use a race coefficient. White Blood Cells 11/19/2022 3.8 (L) 4.0 - 11.0 X10E9/L Final RBC count 11/19/2022 4.39 3.80 - 5.20 X10E12/L Final Hemoglobin 11/19/2022 13.6 11.7 - 15.5 g/dL Final Hematocrit 11/19/2022 40.0 35 - 47 % Final MCV 11/19/2022 91 80 - 100 fL Final MCH 11/19/2022 31.0 27 - 34 pg Final MCHC 11/19/2022 34.0 32 - 36 g/dL Final RDW 11/19/2022 13.1 11.5 - 15.0 % Final Platelets 11/19/2022 213 150 - 450 X10E9/L Final MPV 11/19/2022 9.2 7 - 12 fL Final % neutrophils 11/19/2022 49.5 % Final % lymphocytes 11/19/2022 33.5 % Final % monocytes 11/19/2022 11.8 % Final % eosinophils 11/19/2022 4.1 % Final % Basophils 11/19/2022 1.1 % Final Neutrophils Absolute (A) 11/19/2022 1.9 1.5 - 6.6 X10E9/L Final Lymphocytes Absolute 11/19/2022 1.3 1.0 - 3.5 X10E9/L Final Monocytes Absolute 11/19/2022 0.4 0 - 0.9 X10E9/L Final Eosinophils Absolute 11/19/2022 0.2 0.0 - 0.4 X10E9/L Final Basophils Absolute 11/19/2022 0.0 0.0 - 0.2 [id number]/L Final Advanced Directives: Living Will: Yes DPA for Health Care: Yes Discussion and Summary: Risk findings: none Personalized Prevention Plan Services: Specialty Evaluation Advised:N/A Preventative Programs Recommended: N/A Prevention Counseling and Education Materials:N/A Diseases: N/A Immunizations: N/A Nutrition: N/A Activity/Exercise/Safety/Misc: N/A The above recommendations were discussed with the patient. Medicare Available Services: Medicare Available Services Admin of Pneumococcal Vaccine: Completed Admin of influenza vaccine: Completed Admin of Hep B vaccine: Not applicable AAA ultrasound screening: Not applicable Screening mammography: Completed Screening pap and pelvic exam: Not applicable Prostate cancer screening: Not applicable Colorectal cancer screening tests: Not applicable DM outpatient self management training services: Not applicable Bone mass measurements: Completed Screening for glaucoma: Completed Cardiovascular screening blood tests: Recommended DM screening blood tests: Recommended Smoking cessation counseling: Completed Counseling to prevent tobacco use: Completed Screening/counseling to reduce alcohol misuse: Completed Behavioral therapy for obesity: Not applicable STI infection screening and behavioral counseling: Not applicable Medical nutrition therapy services for DM: Not applicable Medical nutrition therapy services: Not applicable Copy to patient and copy in patient's medical record. Assessment/Plan: Palma Jean has been seen for a well visit today. Preventative recommendations were reviewed. Any chronic conditions that have been addressed include those listed below. Joan was seen today for annual exam. Diagnoses and all orders for this visit: Routine general medical examination at a health care facility Acquired hypothyroidism - CBC auto differential; Future - Lipid profile; Future - Comprehensive metabolic panel; Future - Thyroid profile includes TSH FT4; Future - Magnesium; Future - Vitamin B12; Future Post menopausal syndrome Gastroesophageal reflux disease without esophagitis [facility] [place], [place]; Future Follow Up: Fasting labs Dr Morales referral documented in this encounter [facility] Evaluation note Note Date & Type Note Facility Evaluation note No assessment information [facility] Work Phone: Evaluation note Note Date & Type Note Facility Evaluation note Diagnosis Routine general medical examination at a health care facility- Primary Acquired hypothyroidism Unspecified hypothyroidism Post menopausal syndrome Asymptomatic postmenopausal status (age-related) (natural) Gastroesophageal reflux disease without esophagitis Esophageal reflux Screen for colon cancer Special screening for malignant neoplasms, colon documented in this encounter [facility] Instructions Note Date & Type Note Facility Instructions Not on filedocumented in this en counter [facility] Instructions Note Date & Type Note Facility Instructions Not on filedocumented in this en counter [facility] Reason for referral (narrative) Consultation (Routine) - Authorized Note Date & Type Note Facility Reason for referral (narrati ve) Specialty Diagnoses / Procedures Referred By Juan Jose montelongo Referred To Contact General Surgery Diagnoses Screen for colon cancer Shari Higuera MD [address] [place] [address] Rosa M Morales MD [address] [place] [address] Referral ID Status Reason Start Date Expiration Date Visits Requested Visits Authorized [id number] Authorized Specialty Services Required 11/27/2023 11/26/2024 1 1 [facility] Advance Directives Advance Directive Response Recorded Date/ Time Advance Directives Yes April 21, 2019 4:01pm Advance Directive Response Recorded Date/ Time Advance Directives Yes April 21, 2019 3:01pm Chief Complaint and Reason for Visit Chief Complaint Z96.641 Z96.641 Chief Complaint Screening Hip pain Z96.641 Chief Complaint Z12.31 Assessments No Assessments Information AvailableNo Assessments Information Available Family History Relationship Condition Age at Onset Recorded Date/T [...] DATE CREATED AUTHOR AUTHOR'S ORGANIZ ATION 06/11/2023 [facility] DATE CREATED AUTHOR AUTHOR'S ORGANIZ ATION 11/28/2023 [facility] DATE CREATED AUTHOR AUTHOR'S ORGANIZ ATION 12/04/2023 [facility] Care Teams (unrecognized sec tion and content) Team Status: Inactive Member Role Status Dates Shari Higuera MD Primary Care Provider Active Leo Li MD Attending Provider Active Team Status: Active Member Role Status Dates Shari Higuera MD Primary Care Provider Active Team Status: Inactive Member Role Status Dates Shari Higuera MD Primary Care Provider Active Muna Osborne DO Attending Provider Active Licensed Massage Therapist Relationship Specialty Start Date End Date Shari Higuera MD [address] [place] [address] PCP - General Family Medicine 05/07/18 Licensed Massage Therapist Relationship Specialty Start Date End Date Shari Higuera MD [address] [place] [address] PCP - General Family Medicine 05/07/18 Goals (unrecognized section and content) Goals may be documented in a n alternate sectionGoals may be documented in an alternate sectionNot on filedocumented as of this encounterNot on filedocumented as of this encounter Reason for Visit (unrecogniz ed section and content) Reason Comments Annual Exam Medicare Wellness FOR RECORDS PERTAINING TO PATIENTS WHO ARE [...] BE BASED ON THE PRIMARY CLINICAL RECORDS. [facility] [employer] [facility]. provides no warranty or guarantee of the accuracy or completeness of information in this document.
== END 2024-04-01 13:24 | disposition home or self-care (01) ==
LOC: EC 13:23
PROVIDERS: PCP Family Medicine; Visit Provider Podiatrist Foot & Ankle Surgery
DX: M79.672 Pain in left foot (principal)
CPT/HCPCS: 73630